=== PATIENT | male | born 1950 | race Caucasian/White ===

== ENCOUNTER 2019-03-25 09:13 | Day surgery (SDC) | payer OTHER ==
[2019-03-25 12:05] LABS: Performing Lab VERACYTE; Test Name FNA
[2019-04-11 11:50] LABS: Result SEE PATHOTH RESULTS
== END 2019-03-25 22:35 | disposition home or self-care (01) ==
LOC: US 09:13
PROVIDERS: Registered Nurse
DX: J35.1 Hypertrophy of tonsils (principal); E04.1 Nontoxic single thyroid nodule; E11.42 Type 2 diabetes mellitus with diabetic polyneuropathy; I10 Essential (primary) hypertension; N40.0 Benign prostatic hyperplasia without lower urinary tract symptoms; E78.5 Hyperlipidemia, unspecified; R97.20 Elevated prostate specific antigen [PSA]; Z88.5 Allergy status to narcotic agent
CPT/HCPCS: 10005

== ENCOUNTER 2020-07-23 19:23 | Inpatient (IN) | payer OTHER ==
[~2020-07-23] VITALS: Ht 177.8 cm; Wt 119.4 kg
[2020-07-23] MEDS ORDERED: ATOR40TA PO (19:41)
[2020-07-23] MEDS ORDERED: FINA5 PO (19:44)
[2020-07-23] MEDS ORDERED: VITAMIN D325 MC3 PO (19:44)
[2020-07-23 20:10] LABS: PCO2 Arterial 35.9 mmHg (35-45); PO2 Arterial 51.6 mmHg (80-100); pH Blood Arterial 7.47 (7.35-7.45)
[2020-07-23 20:12] LABS: BASOPHILS ABSOLUTE AUTO 0.02 K/mm3 (0.00-0.23); BASOPHILS PERCENT AUTO 0 % (0-2); EOSINOPHILS PERCENT AUTO 0 % (0-6); Hemoglobin 12.9 g/dL (13.5-17.5); IMMATURE GRAN ABSOLUTE AUTO 0.15 K/mm3 (0.00-0.10); IMMATURE GRAN PERCENT AUTO 1 % (0-1); LYMPHOCYTES ABSOLUTE AUTO 0.44 K/mm3 (0.84-5.20); LYMPHOCYTES PERCENT AUTO 3 % (21-46); MONOCYTES ABSOLUTE AUTO 0.58 K/mm3 (0.16-1.47); MONOCYTES PERCENT AUTO 4 % (4-13); Mean Corpuscular HGB 26.9 pg (26.0-34.0); Mean Corpuscular HGB Conc 33.1 g/dL (31.5-36.5); Mean Corpuscular Volume 81 fL (80-100); Mean Platelet Volume 10.8 fL (9.1-12.4); NEUTROPHILS ABSOLUTE AUTO 12.24 K/mm3 (1.96-9.15); NEUTROPHILS PERCENT AUTO 91 % (41-73); Platelet Count 363 K/mm3 (150-400); RDW Coefficient Variation 12.7 % (11.7-14.2); RDW Standard Deviation 38.2 fL (35.1-46.3); Red Blood Cell Count 4.79 M/mm3 (4.30-5.90); White Blood Cell Count 13.43 K/mm3 (4.00-11.30)
[2020-07-23] MEDS ORDERED: GABA300 PO (20:33)
[2020-07-23] MEDS ORDERED: GABA800 PO (20:34)
[2020-07-23] MEDS ORDERED: Neurontin800 MG PO (20:34)
[2020-07-23 20:35] LABS: Alanine Aminotransfer (ALT/SGP 60 U/L (12-78); Albumin, Blood 3.4 g/dL (3.4-5.0); Albumin/Globulin Ratio 0.8 (0.8-1.8); Alk Phos 124 U/L (50-136); Anion Gap 7 mmol/L (6-16); Aspartate Aminotrans (AST/SGOT 44 U/L (12-37); Bilirubin, Total 0.4 mg/dL (0.1-1.0); Blood Urea Nitrogen 26 mg/dL (8-24); Bun/Creatinine Ratio 28.5 (12.0-20.0); CO2, Blood 28 mmol/L (21-32); Calcium, Blood 9.2 mg/dL (8.5-10.1); Chloride, Blood 95 mmol/L (98-108); Creatinine, Blood 0.91 mg/dL (0.60-1.20); Globulin, Blood 4.3 g/dL (2.2-4.0); Glomerular Filtration Rate >60 (60-); Glucose, Blood 287 mg/dL (70-99); Potassium, Blood 4.3 mmol/L (3.5-5.5); Sodium, Blood 130 mmol/L (136-145); Total Protein, Blood 7.7 g/dL (6.4-8.2)
[2020-07-23] MEDS ORDERED: GUAI600T33 PO (20:35)
[2020-07-23] MEDS ORDERED: GLUCOSE4 GM PO (20:35)
[2020-07-23] MEDS ORDERED: NOVOLOG FL100 UNIT/3 (20:37)
[2020-07-23] MEDS ORDERED: Lisinopril2.5 MG PO (20:38)
[2020-07-23] MEDS ORDERED: LANTUS SOL100 UNIT/1 SC (20:38)
[2020-07-23] MEDS ORDERED: METF500C PO (20:39)
[2020-07-23] MEDS ORDERED: Norco 5-325 Ta1 EACH PO (20:40)
[2020-07-23 20:44] LABS: C-REACTIVE PROTEIN, EXT RANGE 10.5 mg/dL (0.000-0.300)
--- NOTE | 2020-07-24 03:44 | NUR ---
TX NOTE PT TX TO ICU FROM ER, ARRIVED VIA GURNEY. ALERT AND ORIENTED. ON 15LPM O2 VIA NC FOR TRANSPORT, PLACED ON 10L HIFLO NC @ 10L ONCE IN ICU BED. PT TX TO ICU BED VIA SB ASSIST. BECAME MILDLY DYSPNEIC UPON TRANSFER, RECOVERED QUICKLY UPON REST. PT WITH BL 20GA AC IV'S, ROCEPHIN GTT FINISHED UPON ARRIVAL. NO OTHER COMPLAINTS AT THIS TIME. WILL CONTINUE TO MONITOR.
[2020-07-24 04:02] LABS: BASOPHILS ABSOLUTE AUTO 0.02 K/mm3 (0.00-0.23); BASOPHILS PERCENT AUTO 0 % (0-2); EOSINOPHILS PERCENT AUTO 0 % (0-6); Hematocrit 34.8 % (37.0-53.0); Hemoglobin 11.7 g/dL (13.5-17.5); IMMATURE GRAN ABSOLUTE AUTO 0.11 K/mm3 (0.00-0.10); IMMATURE GRAN PERCENT AUTO 1 % (0-1); LYMPHOCYTES ABSOLUTE AUTO 0.35 K/mm3 (0.84-5.20); LYMPHOCYTES PERCENT AUTO 3 % (21-46); MONOCYTES ABSOLUTE AUTO 0.83 K/mm3 (0.16-1.47); MONOCYTES PERCENT AUTO 6 % (4-13); Mean Corpuscular HGB 27.3 pg (26.0-34.0); Mean Corpuscular HGB Conc 33.6 g/dL (31.5-36.5); Mean Corpuscular Volume 81 fL (80-100); Mean Platelet Volume 10.4 fL (9.1-12.4); NEUTROPHILS ABSOLUTE AUTO 11.96 K/mm3 (1.96-9.15); NEUTROPHILS PERCENT AUTO 90 % (41-73); Platelet Count 313 K/mm3 (150-400); RDW Standard Deviation 38.5 fL (35.1-46.3); Red Blood Cell Count 4.28 M/mm3 (4.30-5.90); White Blood Cell Count 13.27 K/mm3 (4.00-11.30)
[2020-07-24 04:20] LABS: Anion Gap 6 mmol/L (6-16); Blood Urea Nitrogen 25 mg/dL (8-24); Bun/Creatinine Ratio 27.9 (12.0-20.0); CO2, Blood 28 mmol/L (21-32); Calcium, Blood 8.7 mg/dL (8.5-10.1); Chloride, Blood 101 mmol/L (98-108); Glomerular Filtration Rate >60 (60-); Glucose, Blood 256 mg/dL (70-99); Sodium, Blood 135 mmol/L (136-145)
--- NOTE | 2020-07-24 06:38 | NUR ---
SHIFT SUMMARY PT ALERT AND ORIENTED. O2 SATS REMAINED >90% UNTIL THIS AM AROUND 0600. PT REQUESTING URINAL, THIS NURSE ASSISTED WITH URINAL BEDSIDE URINAL. PT DID WELL STANDING, STATED STANDING UP FEELS SO GOOD EVEN THOUGH O2 SATS WERE AROUND 86-90% WHILE STANDING. UPON RETURNING TO BED, IN THE UPRIGHT POSITION, PTS SATS CONTINUED TO REMAIN 86-90% ON 10LPM HFNC. OXYGEN TITRATED TO 15LPM WHILE COACHING PT THROUGH BREATHING TECHNIQUES. SATS CONTINUED TO REMAIN BELOW 90% c PT APPEARING DYSPNEIC. RT NOTIFIED, REQUESTED AIRVO, RT CURRENTLY IN ROOM WITH PT. WILL CONTINUE TO MONITOR.
--- NOTE | 2020-07-24 08:52 | NUR ---
AM NOTE... ASSUMED CARE OF PT AT 0700. PT IS A&Ox4 AND WAS ADMITTED WITH COVID-19. PT WAS ON AIRVO AT 45l AND 65% FIO2 AT THE START OF THIS SHIFT. WHILE THIS RN WAS IN THE ROOM FOR ASSESSMENT AND INTENTIONAL HOURLY ROUNDING PT HAD STOOD AT THE SIDE OF THE BED TO USE THE URINAL TO VOID, DURING THIS TIME THE PT'S O2 SATS DID NOT DROP BELOW 91%, ONCE THE PT WAS DONE AND HAD SAT BACK DOWN THIS RN TURNED HIS AIRVO DOWN TO 45l AND 58%FIO2 PT'S O2 SATS CONTINUE TO STAY >90% WITH THESE NEW SETTINGS. PT IS COMPLIANT WITH THE AIRVO BUT STATES IT IS UNCOMFORTABLE D/T THE HIGH FLOW OF AIR. PT'S OTHER VS ARE STABLE AT THIS TIME. PT DENIES CHEST PAIN/PRESSURE OR N/V. PT IS IN NSR IN THE 70'S-90'S, BP STABLE. PT HAS 1+ PITTING EDEMA TO HIS BLE. PULSES PALPABLE AND STRONG. L/S CLEAR AND DIM T/O. PT HAS FREQUENT DRY, HACKING, NONPRODUCTIVE COUGH. BT PRESENT AND HYPOACTIVE, ABD IS SOFT AND NONTENDER TO PALP. PT HAS NS RUNNING AT 75MLS/HR. TEMP IS 98.9. PT WAS ABLE TO STAND AT THE BEDSIDE TO VOID WITH THE URINAL INDEPENDENTLY. WILL CONTINUE TO MONITOR
--- NOTE | 2020-07-24 17:48 | NUR ---
SHIFT SUMMARY... AT APROX 1520 THE PT WAS DRINKING HIS WATER AND SAID HE TOOK "TOO BIG OF A DRINK" AND STARTED TO CHOKE, PT STATED HE FELT LIKE HE WAS DROWNING. PT WAS ON AIRVO AT 45l AND 53%FIO2 WITH O2 SATS >94%, WHEN THIS EVENT HAPPENED HE DROPPED DOWN TO THE LOW 80'S 81%-83%, RT WENT INTO THE ROOM AND INCREASED THE AIRVO TO 50l AND 70%, PT'S O2 SATS WERE STABLE ON THIS SETTING UNTIL APROX 1730 WHEN HIS O2 SATS DROPPED AGAIN AND HIS AIRVO SETTINGS HAD TO BE INCREASED TO 50l AND 80% TO KEEP IS O2 SATS>91%. DURING THIS TIME PT IS NOT IN RESPIRATORY DISTRESS, BUT HE IS HAVING INCREASING COUGHING FITS AND ATTEMPTING TO HOLD OFF COUGHING. PT WAS GIVEN A DOSE OF CODEINE COUGH SYRUP, THIS HAD GREATLY HELPED HIS COUGHING IN THE PAST. PT'S OTHER VS HAVE BEEN STABLE T/O SHIFT. NEW FAINT, FINE CRACKLES WERE HEARD IN BILATERAL BASES UPON AUSCULTATION. PT HAS BEEN INDEPENDENT IN HIS ROOM THIS SHIFT, TAKING HIMSELF TO THE TOILET AND STANDING AT THE BEDSIDE, WELL REPOSITIONING HIMSELF IN BED SEVERAL TIMES PER HOUR. PT'S WAS CALLED AND UPDATED ON HIS CONDITON AND PLAN OF CARE. CALL LIGHT IN REACH WILL CONTINUE TO MONITOR UNTIL REPORT IS GIVEN TO ONCOMING RN.
--- NOTE | 2020-07-24 22:26 | NUR ---
ASSUMED CARE NOTE: ASSUMED CARE OF PT AT 1900, RECEVIED REPORT FROM TACOS. PT IS ALERT AND ORIENTEDX3. PT IS ON AIRVO SETTINGS 50L, FiO2% SPO2 GREATER THAN 90% PT BECOMES SOB WITH ACTIVITY, ABLE TO RECOVER QUICKLY. PT IS IN SINUS RYTHYM HR IN THE 80'S. PT IS USING URINAL AT BEDSIDE IND. CALL LIGHT WITHIN REACH. WILL CONTINUE TO MONITOR PT T/O SHIFT.
--- NOTE | 2020-07-24 23:51 | NUR ---
PT DESATURATED TO 80% PT ON AIRVO 50L, FiO2 AT 90% PT AGREED TO BE INTUBATED IF NEEDED. PT STS " I WAS HAVING A COUGHING FIT, WHICH MADE IT HARDER TO BREATH" RT CALLED TO BEDSIDE
[2020-07-25 03:30] LABS: BASOPHILS ABSOLUTE AUTO 0.02 K/mm3 (0.00-0.23); BASOPHILS PERCENT AUTO 0 % (0-2); EOSINOPHILS ABSOLUTE AUTO 0.01 K/mm3 (0.00-0.68); EOSINOPHILS PERCENT AUTO 0 % (0-6); Hematocrit 37.6 % (37.0-53.0); Hemoglobin 12.4 g/dL (13.5-17.5); IMMATURE GRAN ABSOLUTE AUTO 0.14 K/mm3 (0.00-0.10); IMMATURE GRAN PERCENT AUTO 1 % (0-1); LYMPHOCYTES PERCENT AUTO 4 % (21-46); MONOCYTES ABSOLUTE AUTO 0.69 K/mm3 (0.16-1.47); MONOCYTES PERCENT AUTO 7 % (4-13); Mean Corpuscular HGB 27.3 pg (26.0-34.0); Mean Corpuscular Volume 83 fL (80-100); Mean Platelet Volume 10.4 fL (9.1-12.4); NEUTROPHILS ABSOLUTE AUTO 8.53 K/mm3 (1.96-9.15); NEUTROPHILS PERCENT AUTO 87 % (41-73); Platelet Count 339 K/mm3 (150-400); RDW Coefficient Variation 12.8 % (11.7-14.2); RDW Standard Deviation 39.2 fL (35.1-46.3); Red Blood Cell Count 4.54 M/mm3 (4.30-5.90); White Blood Cell Count 9.79 K/mm3 (4.00-11.30)
[2020-07-25 03:49] LABS: Anion Gap 5 mmol/L (6-16); Blood Urea Nitrogen 24 mg/dL (8-24); Bun/Creatinine Ratio 27.1 (12.0-20.0); CO2, Blood 33 mmol/L (21-32); Calcium, Blood 8.6 mg/dL (8.5-10.1); Chloride, Blood 100 mmol/L (98-108); Creatinine, Blood 0.89 mg/dL (0.60-1.20); Glomerular Filtration Rate >60 (60-); Glucose, Blood 202 mg/dL (70-99); Potassium, Blood 4.2 mmol/L (3.5-5.5); Sodium, Blood 138 mmol/L (136-145)
--- NOTE | 2020-07-25 06:07 | NUR ---
SHIFT SUMMARY: SEE PREVIOUS NOTES. PT CONTINUES TO BE A/OX3. PT ON BIPAP SETTINGS /, FiO2 AT 80%, SPO2 ABOVE 90% PT REQUIRES MORE O2 WHILE ACTIVITY. PT IS INSISTING ON STANDING AND USING URINAL AT BEDSIDE. PT WAS EDUCATED THAT WITH ACTIVITY HIS OXYGEN REQUIRMENT INCREASES, PT WAS ENCOURAGED TO USE URINAL IN BED. CONDOM CATH WILL BE OFFERED AGAIN. PT HAS BEEN IN SR WITH HR IN THE 70'S. WILL CONTINUE TO MONITOR PT UNTIL REPORT IS GIVEN TO ONCOMING SHIFT.
--- NOTE | 2020-07-25 08:47 | NUR ---
AM NOTE... ASSUMED CARE OF PT AT 0715, PT IS A&Ox4, PT WAS PLACED ON BIPAP 12/6 AND 75% FIO2 LAST NIGHT, PT IS CURRENTLY ON BIPAP WITH O2 SATS AT 98% RR IN THE 20'S. PT'S BP STABLE, HE IS IN SR W/1ST DEGREE AV BLOCK IN THE 60'S-90'S, PT DENIES CHEST PAIN/PRESSURE AT THIS TIME. PT HAS TRACE EDEMA TO HIS BLE, THIS IS IMPROVED FROM YESTERDAY. L/S DIM T/O WITH SCATTERED WHEEZES AND SLIGHT COARSENESS IN THE BASES. BT PRESENT AND HYPOACTIVE, ABD IS SOFT AND NONTENDER TO PALP. PT REPORTED HAVING A EPISODE OF LOOSE STOOLS YESTERDAY. PER NOC SHIFT RN REPORT PT HAD TO BE PLACED ON BIPAP AFTER A COUGHING FIT, PT TOLERATED THIS WELL. WHILE THIS RN WAS IN THE ROOM FOR MORNING ASSESSMENTS RT CAME IN AND SWITCHED THE PT OVER TO THE AIRVO AT 60l AND 90%FIO2 TO GIVE THE PT A BREAK AND PROVIDE ORAL CARE. PT HAS BEEN TOLERATING THE AIRVO AT THESE SETTINGS AND IS KEEPING HIS O2 SATS >90% AT THIS TIME. PT HAS A SLIGHLTY INCREASED WORK OF BREATHING AND SHORTNESS OF BREATH FROM YESTERDAY. PT IS EDUCATED ON STAYING IN BED AND KEEPING MOVEMENT TO A MINIMUM AT THIS TIME TO PREVENT RESPIRATORY DISTRESS, PT VERBALIZED HIS UNDERSTANDING AND HIS CONCERNS ABOUT HAVING TO GO BACK ON THE BIPAP, PT IS VERY ANXIOUS ABOUT THIS IDEA BUT IS COOPERATIVE WITH CARE AT THIS TIME. PT ATE 95% OF HIS BREAKFAST THIS AM. CALL LIGHT IN REACH WILL CONTINUE TO MONITOR.
[2020-07-25 12:23] LABS: PO2 Arterial 84.7 mmHg (80-100); pH Blood Arterial 7.41 (7.35-7.45)
--- NOTE | 2020-07-25 12:46 | NUR ---
PT UPDATE.... AT APROX 12 THIS PT'S WORK OF BREATHING INCREASED TO A RR IN THE 40'S,HE WAS ON THE AIRVO AT 60l AND 90% FIO2, RT WAS CALLED INTO THE ROOM AND SWITCHED HIM OVER TO THE BIPAP, PT'S BIPAP SETTINGS ARE CURRENTLY 12/8 AND 100% FIO2, DR. HERNANDEZ WAS CALLED AND INFORMED OF THIS WELL THE PT'S INCREASED ANXIETY ABOUT HAVING TO WEAR THE BIPAP, PO 0.5MG XANAX ONCE WAS ORDERED AT THE TIME AND WAS GIVEN WITH GOOD EFFECT. DR. HERNANDEZ ALSO CONSULTED PULMONOLOGY. ONCE THE DIRECTOR VOLUNTEER SERVICES WAS CONSULTED ORDERS WERE OBTAINED FOR A STAT CXR, ABG, D-DIMER, ESR. LOW DOSE PRECEDEX WAS ALSO ORDERED AT THE TIME, THIS WAS STARTED PER EMAR ORDERS. 1250: PT'S RR HAS DECREASED FROM THE 40'S TO THE 30'S PT IS RESTING WITH HIS EYES CLOSED IN THE BED. PT'S HR IS STABLE IN THE 70'S, BP STABLE AT 123/64. O2 SATS ARE AT 96% BIPAP SETTINGS 12/8 AND 100%. CALL LIGHT IN REACH WILL CONTINUE TO MONITOR.
[2020-07-25 14:56] LABS: Source, Urine Catheter
[2020-07-25 15:09] LABS: Appearance, Urine Clear (Clear); Bilirubin, Urine Neg (Neg); Blood, Urine 1+ (Neg); Color, Urine Yellow (P-Yellow); Glucose Qualitative, Urine 3+ (Neg); Ketones, Urine Neg (Neg); Leukocyte Esterase, Urine Neg (Neg); Nitrite, Urine Neg (Neg); Protein, Urine Neg (Neg); Specific Gravity, Urine 1.015 (1.003-1.022); Urobilinogen, Urine NORM (Normal)
[2020-07-25 15:18] LABS: Bacteria Rare /hpf; Mucus Light (0-Heavy); Red Blood Cells, Urine Not Seen /hpf (0-2); Squamous Epithelial Cells Not Seen /hpf (Few); White Blood Cells, Urine Not Seen /hpf (0-5)
--- NOTE | 2020-07-25 17:30 | NUR ---
ASSUMED PT CARE. PT SITTING UP IN BED-HIGH VANCE'S POSITION. PT RESTING QUIETLY WHEN NOT DISTURBED ON PRECEDEX @ 0.4 MCG/KG/MIN. LUNGS DIMINISHED THROUGH OUT. INCREASED WOB AND SOB NOTED WITH MINIMAL EXERTION. AT REST, RR 26 AND [id number]>90% ON AIRVO 60 L/91% PT REQUESTED "COUGH MEDICINE." REQUEST GRANTED-SEE EMAR. PT ABLE TO SWALLOW COUGH SYRUP WITH SIP OF WATER WITHOUT DIFFICULTY. CALL LIGHT WITHIN REACH. PT STATES THAT HE WILL CALL FOR ASSIST PRN.
--- NOTE | 2020-07-25 21:32 | NUR ---
ASSUMED CARE NOTE: ASSUMED CARE OF PT AT 1900, RECEVIED REPORT FROM ANDRES BARNES. PT IS DROWSY, HWOEVER IS ABLE TO AWAKEN TO VERBAL STIMULI AND ANSWER QUESTIONS. PT IS ON PRECEDEX FOR BIPAP/OXYGEN SUPPORT. PT IS ON AIRVO AT THIS TIME, SETTING 50L 92% FiO2, SPO2 ABOVE 90% PT STS " I FEEL LIKE I CAN BREATH BETTER, LESS ANXIOUS" LUNG SOUNDS ARE DIMINISHED T/O, EXP WHEEZE IN THE LOWER BASES. AWAITING FOR SPUTUM TO COLLECT SAMPLE. PT HAS BEEN IN SINUS GINGER HR BETWEEN 40-58. PT WAS ABLE TO TAKE PO MEDS W/O DIFFICULTY OR SIGNS OF ASPIRATION. FLORES IS PATENT, DRAINING TO GRAVITY. ADDY WAS CALLED WITH UPDATE, SHE WAS CONCEREND DUE TO PATINET BEING DROWSY. REASSURED THAT WE ARE MONITORING PATINET AND THAT HE IS CURRENTLY ON MEDICATION (PRECEDEX) THAT COULD MAKE HIM DROWSY. WILL CONTINUE TO MONITOR PT T/O SHIFT, BED AT LOWEST LEVEL, CALL LIGHT WITHIN REACH.
--- NOTE | 2020-07-25 22:27 | NUR ---
WITH SLIGHT ACTIVITY, PT DESATURATED TO 80%, PT WAS PLACED BACK ON BIPAP 12/8, FiO2 AT 100% SPO2 AT 90% AT THIS TIME.
[2020-07-26 04:09] LABS: Anion Gap 4 mmol/L (6-16); Blood Urea Nitrogen 23 mg/dL (8-24); Bun/Creatinine Ratio 33.9 (12.0-20.0); CO2, Blood 30 mmol/L (21-32); Calcium, Blood 8.5 mg/dL (8.5-10.1); Chloride, Blood 101 mmol/L (98-108); Creatinine, Blood 0.68 mg/dL (0.60-1.20); Glomerular Filtration Rate >60 (60-); Glucose, Blood 233 mg/dL (70-99); Potassium, Blood 4.8 mmol/L (3.5-5.5); Sodium, Blood 135 mmol/L (136-145)
--- NOTE | 2020-07-26 05:45 | NUR ---
PT SHIFTED HIPS IN BED, SPO2 DROPPED TO 70% PT WAS ON AIRVO AT THIS TIME SETTINGS 60L FiO2 92%. PT PLACED ON BIPAP /, FiO2 OF 100% , SPO2 IMPROVED TO 80% RT CALLED TO BEDSIDE. NURSE KUMAR CALLED , ORDERS FOR VERSED GIVEN. PT PRONED, PRECEDEX INCREASED TO 0.6MCG/KG/HR. SPO2 INCREASED TO 98% WITH CPAP 12, FiO2 AT 100% WILL CONTINUE TO MONITOR PT UNTIL REPORT IS GIVEN TO ONCOMING SHIFT.
[2020-07-26 06:13] LABS: PCO2 Arterial 47.3 mmHg (35-45); PO2 Arterial 48.8 mmHg (80-100); pH Blood Arterial 7.41 (7.35-7.45)
--- NOTE | 2020-07-26 09:34 | NUR ---
AM NOTE.... ASSUMED CARE OF PT AT 0715, PT WAS PRONING AT THE TIME, ON CPAP AT 12 AND 100% FIO2 WITH O2 SATS AT 94%. PT IS IN SINUS GINGER W/FIRST DEGREE AV BLOCK IN THE 50'S. BP IS ON THE SOFT SIDE WITH SBP 80'S-110'S. TRACE EDEMA IS NOTED TO HIS BLE ON ASSESSMENT. L/S DIM T/O W/ SCATTERED WHEEZES AND FINE CRACKLES NOTED ON THE RIGHT SIDE. RR IN THE 30'S. BT PRESENT AND HYPOACTIVE, ABD IS SOFT AND NONTENDER TO PALP. PT IS ON PRECEDEX AT 0.4MCG/KG/HR. PT WAS HELPED FROM PRONING TO HIGH FOWLERS TO DO AN EKG PER ORDERS THIS AM. THIS MOVEMENT MADE HIM DESAT INTO THE LOW 80'S AND IT TOOK HIM AWHILE TO IMPROVE ABOVE 88%. ONCE CARE WAS DONE WITH HIM HE REQUESTED NOT TO GO BACK TO PRONING D/T THE PAIN IT WAS CAUSING HIS SHOULDERS AND BACK. PT EDUCATED ON THE BENEFITS OF PRONING WITH GEOFF, PT VERBALIZED HIS UNDERSTANDING BUT STILL REFUSED. AT 0850 DR. VILLEGAS WAS AT THE BEDSIDE TO ASSESS THE PT, NEW ORDERS TO CHANGE HIS DUONEB TO Q4 SCHEDULED, DR. VILLEGAS SPOKE WITH THE PT ON HIS PLAN OF CARE AND WHAT THE NEXT STEPS WOULD BE IF HIS O2 SATS CONTINUED TO DROP ON THE BIPAP/CPAP. PT VERBALIZED HIS UNDERSTANDING. CALL LIGHT IN REACH WILL CONTINUE TO MONITOR.
--- NOTE | 2020-07-26 13:06 | NUR ---
PT UPDATE... AT 1130 THE PT STARTED HAVING RESPIRATORY DISTRESS, RT WAS CALLED INTO THE ROOM, PT WAS ON CPAP AT 12/100% WITH O2 SATS IN THE LOW 80'S, RT TRIED BIPAP SETTINGS, THIS HELPED BRING THE PT'S O2 SATS UP TO THE HIGH 80'S LOW 90'S FOR APROX 5 MINS BEFORE HIS O2 SATS DROPPED DOWN TO THE 70'S, PT'S RR WAS IN THE 40'S-50'S W/ACCESSORY MUSCLE USE. DR. VILLEGAS WAS NOTIFIED BY THE ANIMAL TRAINER AND PT WAS INTUBATED AT 1204 WITH AN 8.0 ET TUBE 25 AT THE TEETH. AT 1159 PT WAS GIVEN 50MCG OF PHENYLEPHRINE. 1200: 50MCG OF FENTANYL AND 20 OF ETOMIDATE. 1202: 2MG OF VERSED. 1203: 20MG OF ROCURONIUM 1204: ET TUBE PLACED WITH GOOD COLOR CHANGE. 1210: PROPOFOL STARTED AT 20MCG/KG/MIN. PRECEDEX WAS ALREADY RUNNING PRIOR TO THIS EVENT, THE PT WAS BREATHING OVER THE VENT AND COUGHING, HIS O2 SATS WERE DOWN IN THE 70'S-80'S WITH VENT SETTINGS AT AC: 20/540/14PEEP/100% DR. VILLEGAS NOTIFIED AND GAVE A VERBAL ORDER TO THIS RUN TO INCREASE THE PROPOFOL UNTIL GOOD SEDATION WAS OBTAINED, NIMBEX WAS ALSO ORDERED AT THIS TIME. WILL CONTINUE TO MONITOR.
--- NOTE | 2020-07-26 15:14 | NUR ---
PT UPDATE... PRIOR TO NIMBEX BEING STARTED THE PT'S BIS RANGE WAS 24-28, HIS TRAIN OF FOUR WAS 4/4 WITH THE DIAL AT 8. THE PROPOFOL WAS FROM 70MCG/KG/MIN TO 40MCG/KG/MIN THEN THE NIMBEX WAS STARTED AT 1335 AT 2MCG/KG/MIN. PT'S VENT SETTINGS ARE AC:20/440/PEEP14/90% W/O2 SATS >94% RR IN THE 20'S. PT'S CURRENT BIS RANGE IS 40-44. PT'S WAS CALLED AND UPDATED. WILL CONTINUE TO MONITOR.
--- NOTE | 2020-07-26 16:12 | NUR ---
pt emergently intubated. updated and discussed speaking with family to consider no cpr. will updated again of tolerace to vent nursing held phone to his ear. on quarentine will continue supportive calls and updates.
[2020-07-26 17:03] LABS: PCO2 Venous 54.9 mmHg (38-42); pH Blood Venous 7.35 (7.34-7.37)
[2020-07-26 17:04] LABS: Base Excess Venous 4.6 mmol/L; Bicarbonate Venous 27.2 mmol/L (24.0-30.0)
--- NOTE | 2020-07-26 18:43 | NUR ---
SHIFT SUMMARY... NO ACUTE NEGATIVE CHANGES SINCE PREVIOUS NOTE. PT CONTINUES TO BE ON NIMBEX AT 2MCG/KG/MIN, HIS TRAIN OF FOUR IS CURRENTLY 3/4 WITH THE DIAL AT 10. PROPOFOL IS RUNNING AT 40MCG/KG/MIN AND PRECEDEX IS RUNNING AT 0.5MCG/KG/MIN. PT'S BIS RANGE IS 40-46. VENT SETTINGS ARE AC:20/440/PEEP14/60% WITH O2 SATS >95%. PER DR. VILLEGAS DO NOT DROP THE PT BELOW A PEEP OF 10 AND FIO2 OF 60%, RT WAS MADE AWARE OF THIS REQUEST. SPUTUM SAMPLE WAS SENT TO THE LAB. FLORES IS PATENT AND DRAINING CLEAR YELLOW URINE TO GRAVITY. PT DID NOT HAVE A BM THIS SHIFT. OG TUBE IS PATENT AND OKAY TO USE FOR MEDS PER . WILL CONTINUE TO MONITOR UNTIL REPORT IS GIVEN TO ONCOMING RN.
--- NOTE | 2020-07-26 19:35 | NUR ---
ASSUMED PT CARE REPORT AND ROUNDS WITH KRISTEL BARNES AT 1900, ASSUMED PT CARE. PT INTUBATED, SEDATED AND PARALYZED. PT ON SEAT INSTALLER, SBP 136, HR 50 SINUS GINGER. SATS >92%, AC20/440/14/60, RT AT BEDSIDE AND CHANGED PEEP TO 10. PER DR VILLEGAS, PEEP TO STAY 10 OR GREATER AND FIO2 TO STAY 60% OR GREATER, RT AWARE. LUNG SOUNDS CLEAR. SECRETIONS MINIMAL AT THIS TIME. SKIN INTACT AND CLEAN. TEMP PROBE FLORES DRAINING WELL, PT AFEBRILE, TEMP 98.6. PT HAS 18G TO LEFT FA WITH PRECEDEX INFUSING @ 0.5MCG/KG/HR AND PROPOFOL INF @ 40 MCG/KG/MIN, SITE WNL, DRESSING C/D/I. PT HAS 20G TO LEFT AC, SITE WNL, DRESSING C/D/I. PT HAS POWERGLIDE TO RIGHT UPPER ARM WITH NIMBEX INF @ 2MCG/KG/MIN, SITE WNL, DRESSING C/D/I. TRAIN OF 3/4, BIS MONITOR 40'S. ABD SOFT, DISTENDED, BOWEL SOUNDS HYPOACTIVE, OG CLAMPED, CONFIRMED BY DR VILLEGAS FOR USE. SEE FULL SHIFT ASSESSMENT
[2020-07-27 04:57] LABS: BASOPHILS ABSOLUTE AUTO 0.02 K/mm3 (0.00-0.23); BASOPHILS PERCENT AUTO 0 % (0-2); EOSINOPHILS ABSOLUTE AUTO 0.04 K/mm3 (0.00-0.68); EOSINOPHILS PERCENT AUTO 1 % (0-6); Hematocrit 38.9 % (37.0-53.0); Hemoglobin 12.7 g/dL (13.5-17.5); IMMATURE GRAN ABSOLUTE AUTO 0.18 K/mm3 (0.00-0.10); IMMATURE GRAN PERCENT AUTO 2 % (0-1); LYMPHOCYTES ABSOLUTE AUTO 0.42 K/mm3 (0.84-5.20); LYMPHOCYTES PERCENT AUTO 5 % (21-46); MONOCYTES ABSOLUTE AUTO 0.55 K/mm3 (0.16-1.47); MONOCYTES PERCENT AUTO 7 % (4-13); Mean Corpuscular HGB 27.1 pg (26.0-34.0); Mean Corpuscular HGB Conc 32.6 g/dL (31.5-36.5); Mean Corpuscular Volume 83 fL (80-100); Mean Platelet Volume 10.6 fL (9.1-12.4); NEUTROPHILS ABSOLUTE AUTO 7.02 K/mm3 (1.96-9.15); NEUTROPHILS PERCENT AUTO 85 % (41-73); Platelet Count 350 K/mm3 (150-400); RDW Coefficient Variation 12.8 % (11.7-14.2); RDW Standard Deviation 38.7 fL (35.1-46.3); Red Blood Cell Count 4.69 M/mm3 (4.30-5.90); White Blood Cell Count 8.23 K/mm3 (4.00-11.30)
[2020-07-27 05:16] LABS: Anion Gap 6 mmol/L (6-16); Blood Urea Nitrogen 19 mg/dL (8-24); Bun/Creatinine Ratio 25.8 (12.0-20.0); CO2, Blood 30 mmol/L (21-32); Calcium, Blood 8.3 mg/dL (8.5-10.1); Chloride, Blood 103 mmol/L (98-108); Creatinine, Blood 0.74 mg/dL (0.60-1.20); Glomerular Filtration Rate >60 (60-); Glucose, Blood 224 mg/dL (70-99); Potassium, Blood 4.7 mmol/L (3.5-5.5); Sodium, Blood 139 mmol/L (136-145)
--- NOTE | 2020-07-27 06:36 | NUR ---
SHIFT SUMMARY PT HAD GOOD SHIFT. REMAINS INTUBATED, SEDATED AND PARALYZED. VENT SETTINGS AC 20/440/10/60, SATS >92%. LUNG SOUNDS REMAIN CLEAR. SPUTUM MINIMAL. PT HAS POWERGLIDE TO BAY WITH NIMBEX INF @ 2MCG/KG/MIN, SITE WNL, DRESSING C/D/I. PT HAS NEW 20G TO RIGHT HAND, DRESSING C/D/I, SITE WNL. PT HAS 18G TO LEFT FA WITH PROPOFOL INF @ 40MCG/KG/MIN AND PRECEDEX INF @ 0.5MCG/KG/HR, SITE WNL, DRESSING C/D/I. PT HAS CLAMPED OG TUBE, ABD SOFT/DISTENDED. BOWEL SOUNDS HYPOACTIVE. PUPILS 1MM. TEMP FLORES DRAINING YELLOW URINE. SCANT EDEMA TO BLE. EXT FLOATED ON PILLOWS. BIS 35-48. TRAIN OF 4 SCORE 3/4 TO 4/4. WILL REPORT TO ONCOMING RN.
--- NOTE | 2020-07-27 08:00 | NUR ---
Michelet report from Manuel BARNES. Patient intubated, sedated and paralyzed. He has 8.0 ET and 24 cm at teeth with vent settings of AC 20, TV 440, FiO2 60%, and PEEP 10 with sats 94%. He hasn OG in place and is clamped. He has 18 ga IV LFA infusing Propofol 40 mcg/kg/min, Precedex 0.5 mcg/kg/hr. He also has IV 20 ga RH ionfusing NS TKO. He has 20/10 PoerGlide to BAY and is infusin NS TKO and Nimbes 2 mcg/kg/min and BIZ 45, TO4/4. He has 16Fr temp pagan draining to gravity clear yellow urine. All extremities elevated with pillows.
[2020-07-27 08:35] LABS: Base Excess Venous 6.7 mmol/L; PCO2 Venous 48.3 mmHg (38-42); pH Blood Venous 7.42 (7.34-7.37)
--- NOTE | 2020-07-27 09:46 | NUR ---
No changes in vent or gtt settings. AM meds through OG and tolerated well. BIS 37-45. Repsoitioned and all extremities elevated with pillows.
--- NOTE | 2020-07-27 16:39 | NUR ---
No changes in vent or gtt settings other than Precedex is on standby. TF started Vital high Protien at 25 ml/hr and 30 ml/hr water flushes. Emptied 2200 clear yellow urine. repositioned and did orakl care.
--- NOTE | 2020-07-27 17:09 | NUR ---
Review of pt care with nursing and updated patients . She is sicker today and more fragil. still wants full care.
[2020-07-28 03:34] LABS: BASOPHILS ABSOLUTE AUTO 0.05 K/mm3 (0.00-0.23); BASOPHILS PERCENT AUTO 1 % (0-2); EOSINOPHILS ABSOLUTE AUTO 0.03 K/mm3 (0.00-0.68); EOSINOPHILS PERCENT AUTO 0 % (0-6); IMMATURE GRAN ABSOLUTE AUTO 0.34 K/mm3 (0.00-0.10); IMMATURE GRAN PERCENT AUTO 3 % (0-1); LYMPHOCYTES ABSOLUTE AUTO 0.33 K/mm3 (0.84-5.20); LYMPHOCYTES PERCENT AUTO 3 % (21-46); MONOCYTES ABSOLUTE AUTO 0.69 K/mm3 (0.16-1.47); MONOCYTES PERCENT AUTO 7 % (4-13); Mean Corpuscular HGB 26.7 pg (26.0-34.0); Mean Corpuscular HGB Conc 32.5 g/dL (31.5-36.5); Mean Corpuscular Volume 82 fL (80-100); Mean Platelet Volume 10.6 fL (9.1-12.4); NEUTROPHILS ABSOLUTE AUTO 8.42 K/mm3 (1.96-9.15); NEUTROPHILS PERCENT AUTO 86 % (41-73); Platelet Count 377 K/mm3 (150-400); RDW Coefficient Variation 12.8 % (11.7-14.2); RDW Standard Deviation 38.6 fL (35.1-46.3); Red Blood Cell Count 4.86 M/mm3 (4.30-5.90); White Blood Cell Count 9.86 K/mm3 (4.00-11.30)
[2020-07-28 03:53] LABS: Alanine Aminotransfer (ALT/SGP 71 U/L (12-78); Albumin, Blood 2.1 g/dL (3.4-5.0); Albumin/Globulin Ratio 0.5 (0.8-1.8); Alk Phos 110 U/L (50-136); Anion Gap 5 mmol/L (6-16); Aspartate Aminotrans (AST/SGOT 70 U/L (12-37); Bilirubin, Total 0.4 mg/dL (0.1-1.0); Blood Urea Nitrogen 23 mg/dL (8-24); Bun/Creatinine Ratio 31.9 (12.0-20.0); CO2, Blood 32 mmol/L (21-32); Calcium, Blood 8.3 mg/dL (8.5-10.1); Chloride, Blood 101 mmol/L (98-108); Creatinine, Blood 0.72 mg/dL (0.60-1.20); Globulin, Blood 4.3 g/dL (2.2-4.0); Glomerular Filtration Rate >60 (60-); Glucose, Blood 233 mg/dL (70-99); Magnesium, Blood 2.1 mg/dL (1.6-2.4); Phosphorus, Blood 3.4 mg/dL (2.5-4.9); Potassium, Blood 4.2 mmol/L (3.5-5.5); Sodium, Blood 138 mmol/L (136-145); Total Protein, Blood 6.4 g/dL (6.4-8.2)
--- NOTE | 2020-07-28 06:00 | NUR ---
SUMMARY: PT CONT INTUBATED SEDATED & PARALYZED W NIMBEX. PRECEDEX CONT OFF. PT BIZ HAS BEEN 30'S TO 40'S ALL SHIFT. ATTEMPTED TO DECREASE NIMBEX BUT PT NOTED W INCREASED PIP FROM INITIAL 25 AND UP TO 32, PT ALSO DESATTING TO 87% AFTER PREVIOUSLY UP TITRATED TO 70% AFTER BATH. COPIOUS ORAL SECRETIONS. ETT SECRETIONS CONT CLEAR, SL WHITE. NIMBEX INCREASED TO 2. PT WAS ALSO MED W FENTANYL W GOOD RESULT. WILL DISCUSS IN REPORT CONSIDERATION TO INCREASING FENTANYL W POSSIBILITY TO DECREASE NIMBEX. NO RESIDUALS, TF INCREASED TO GOAL RATE OF 35CC/HR. PT PASSING FLATUS, NO STOOL. SKIN WO BREAKDOWN. GOOD URINE OUTPUT.REPORT TO DAYS.
--- NOTE | 2020-07-28 11:34 | NUR ---
LATE AM NOTE. PT INITALLY ON NIMBEX GTT AND TITRATED DOWN AND OFF PER DR VILLEGAS ORDER. PT CHANGED TO PRECEDEX GTT AND LATER HR AND BP DROPPED REQUIRING LEVOPHED GTT NOTED. PT SEDATE AND TOLERTING LOWER DOSE PRECEDEX GTT AND PROPOFOL AT 40 MCG. PT NOTED TO HAVE COPIOUS SECRAETIONS OF WHITE, SL ORTIZ AND THIN SECREATIONS. PEEP INC TO 12 AND FIO2 REMAINS AT 75%. WILL FOLLOW.
--- NOTE | 2020-07-28 17:41 | NUR ---
PT REMAINS SEDATE BUT ON ONLY PROPOFOL GTT AT THIS TIME. LEVOPHED GTT HAS BEEN OFF FOR APPROX 1 1/2 HOUR WITH VS NOTED. I/O NOTED. FIO2 DOWN TO 70% AND PT TOLERATING WELL. PT CONT TO HAVE MODERATE AMOUNT OF ET SECRATIONS BUT HAS SLOWED DOWN SLIGHTLY. PICC LINE WAS PLACED THIS AFTERNOON NOTED.
--- NOTE | 2020-07-28 18:47 | NUR ---
WAS CALLED WITH PT CELL PHONE AND SHE SPOKE TO PT. BP NOTED SL LOW AND LEVOPHED GTT RESTATED AND WILL FOLLOW.
--- NOTE | 2020-07-28 19:00 | NUR ---
ASSUMED CARE NOTE: ASSUMED CARE OF PT AT 1900, RECEVIED REPORT FROM ANA BARNES. PT IS SEDATED WITH 40MCG/KG/MIN OF PROPOFOL, PT IS RESPONSIVE TO PAINFUL STIMULI. PT IS ON VENT WITH SETTINGS AC20/440/12/70% PT IS HAVING LARGE AMOUNTS OF CLEAR THIN SECRETIONS. RR BETWEEN 25-30. PT IS IN SR WITH HR IN THE 60'S, BP STABLE. LEVOPHED ON SB AT THIS TIME, MAP ABOVE 65. OGT TO TUBE FEED RUNNING AT 35ML/HR NO RESIDUAL AT THIS TIME. TEMP FLORES PATENT DRAINING TO GRAVITY, YELLOW CLEAR URINE NOTED. WILL CONTINUE TO MONITOR PT T/O SHIFT.
--- NOTE | 2020-07-28 20:25 | NUR ---
1950: ETT WAS 23 AT THE LIP, RT KARLA CORRECTED PLACEMENT TO 25 AT THE LIP.
--- NOTE | 2020-07-28 22:33 | NUR ---
TUBE FEEDING TUBING AND FORMULA CHANGED AT 2200. PT RECEVIED A BATH, AND WAS REPOSIITONED. WILL CONTINUE TO MONITOR
[2020-07-29 04:16] LABS: Hematocrit 36.1 % (37.0-53.0); Hemoglobin 11.9 g/dL (13.5-17.5); Mean Corpuscular HGB 27.4 pg (26.0-34.0); Mean Corpuscular Volume 83 fL (80-100); Mean Platelet Volume 10.5 fL (9.1-12.4); Platelet Count 324 K/mm3 (150-400); RDW Standard Deviation 39.3 fL (35.1-46.3); Red Blood Cell Count 4.35 M/mm3 (4.30-5.90); White Blood Cell Count 8.27 K/mm3 (4.00-11.30)
[2020-07-29 04:34] LABS: Anion Gap 5 mmol/L (6-16); Blood Urea Nitrogen 32 mg/dL (8-24); Bun/Creatinine Ratio 42.9 (12.0-20.0); CO2, Blood 31 mmol/L (21-32); Calcium, Blood 8.5 mg/dL (8.5-10.1); Chloride, Blood 103 mmol/L (98-108); Creatinine, Blood 0.75 mg/dL (0.60-1.20); Glomerular Filtration Rate >60 (60-); Glucose, Blood 224 mg/dL (70-99); Magnesium, Blood 2.2 mg/dL (1.6-2.4); Phosphorus, Blood 3.4 mg/dL (2.5-4.9); Potassium, Blood 4.3 mmol/L (3.5-5.5); Sodium, Blood 139 mmol/L (136-145)
[2020-07-29 05:11] LABS: BAND PERCENT MAN 2 % (0-8); BASOPHILS PERCENT MAN 0 % (0-2); EOSINOPHILS PERCENT MAN 0 % (0-6); LYMPHOCYTES ABSOLUTE MAN 0.16 K/mm3 (0.84-5.20); LYMPHOCYTES PERCENT MAN 2 % (21-46); METAMYELOCYTE ABSOLUTE MAN 0.08 K/mm3 (0.00-0.00); METAMYELOCYTE PERCENT MAN 1 % (0-0); MONOCYTES ABSOLUTE MAN 0.41 K/mm3 (0.16-1.47); MONOCYTES PERCENT MAN 5 % (4-13); MYELOCYTE ABSOLUTE MAN 0.24 K/mm3 (0.00-0.00); MYELOCYTE PERCENT MAN 3 % (0-0); NEUTROPHILS ABSOLUTE MAN 7.36 K/mm3 (1.96-9.15); SEG NEUTROPHILS PERCENT MAN 87 % (41-73); TOTAL CELLS COUNTED 100
--- NOTE | 2020-07-29 06:10 | NUR ---
SHIFT SUMMARY: PT REMAINS SEDATED WITH PROPOFOL AT 45MCG/KG/MIN, FENTANYL GIVEN PRN NEEDED FOR VENT COMPILANCE. PT IS ON VENT WITH SETTINGS AT AC20/440/12/65%, SPO2 ABOVE 90% PT HAVING LARGE AMOUNTS OF THIN WHITE/CLEAR SECRETIONS. NEEDS SUCTION OFTEN. PT HAS BEEN IN SR WITH HR IN THE 70'S. BP STABLE, LEVOPHED HAS BEEN OFF SINCE THE START OF SHIFT. TF RUNNING AT GOAL 35ML/HR, NO RESIDUALS NOTED. NO BM THIS SHIFT. FLORES PATENT, DRAINING TO GRAVITY, 1000ML OUTPUT THIS SHIFT. WILL CONTINUE TO MONITOR PT UNTIL REPORT IS GIVEN TO ONCOMING SHIFT. BED AT LOWEST LEVEL.
--- NOTE | 2020-07-29 08:30 | NUR ---
PT INTUBATED AND SEDATED WITH PROPOFOL. WHEN PROPOFOL IS OFF FOR SHORT AMT OF TIME PT WILL WAKE AND FOLLOW COMMANDS TO MOVE HANDS AND FEET AND TRACKS WITH EYE'S. SEE ASSESSMENT.
--- NOTE | 2020-07-29 18:46 | NUR ---
SUMMARY PT INTUBATED AND SEDATED WITH PROPOFOL. WAKES EASILY AND QUICKLY WHEN PROPOFOL IS OFF. PT WILL FOLLOW SIMPLE COMMANDS WHEN SEDATION IS OFF. LARGE AMT OF SECRETIONS FROM ETT TODAY, CLEAR WHITE. FIO2 WAS TITRATED DOWN TO 50%. TOLERATING TUBE FEEDS. STARTED DOCUSATE TODAY SINCE NO BM IN A FEW DAYS. ABD SOFT WITH ACTIVE BT'S. NO OTHER CHANGES TODAY.
--- NOTE | 2020-07-29 19:52 | NUR ---
ASSUMED CARE NOTE: ASSUMED CARE OF PT AT 1900, RECEVIED REPORT FROM DWIGHT BARNES. PT IS SEDATED WITH 55MCG/KG/MIN OF PROPOFOL, PT RESPONDS TO PAINFUL STIMULI. PT IS ON VENT WITH SETTINGS CHANGED TO AC20/440/12/40% PT MAINTAINING SPO2 ABOVE 90, GOAL 88% THIN WHITE FROTHY SECRETIONS NOTED VIA ETT. PLACEMENT OF ETT VERFIED WITH RT KARLA. PT IS IN SR WITH HR IN THE 60'S, BP STABLE, MAP ABOVE 65. OGT TO TF, RUNNING AT GOAL 35ML/HR, RESIDUAL 0 AT THIS TIME. FLORES PATENT DRAINING TO GRAVITY, YELLOW CLEAR. PT REPOSITIONED. BED AT LOWEST LEVEL.
[2020-07-30 03:32] LABS: Hematocrit 35.4 % (37.0-53.0); Hemoglobin 11.7 g/dL (13.5-17.5); Mean Corpuscular HGB 27.3 pg (26.0-34.0); Mean Corpuscular HGB Conc 33.1 g/dL (31.5-36.5); Mean Corpuscular Volume 83 fL (80-100); Mean Platelet Volume 10.7 fL (9.1-12.4); Platelet Count 293 K/mm3 (150-400); RDW Standard Deviation 39.1 fL (35.1-46.3); Red Blood Cell Count 4.28 M/mm3 (4.30-5.90); White Blood Cell Count 7.54 K/mm3 (4.00-11.30)
[2020-07-30 03:49] LABS: Anion Gap 3 mmol/L (6-16); Blood Urea Nitrogen 33 mg/dL (8-24); Bun/Creatinine Ratio 45.1 (12.0-20.0); CO2, Blood 32 mmol/L (21-32); Calcium, Blood 8.4 mg/dL (8.5-10.1); Chloride, Blood 102 mmol/L (98-108); Creatinine, Blood 0.73 mg/dL (0.60-1.20); Glomerular Filtration Rate >60 (60-); Glucose, Blood 262 mg/dL (70-99); Magnesium, Blood 2.2 mg/dL (1.6-2.4); Phosphorus, Blood 3.9 mg/dL (2.5-4.9); Potassium, Blood 4.4 mmol/L (3.5-5.5); Sodium, Blood 137 mmol/L (136-145)
[2020-07-30 03:52] LABS: BAND PERCENT MAN 4 % (0-8); BASOPHILS PERCENT MAN 0 % (0-2); EOSINOPHILS PERCENT MAN 0 % (0-6); LYMPHOCYTES ABSOLUTE MAN 0.07 K/mm3 (0.84-5.20); LYMPHOCYTES PERCENT MAN 1 % (21-46); MONOCYTES ABSOLUTE MAN 0.45 K/mm3 (0.16-1.47); MONOCYTES PERCENT MAN 6 % (4-13); MYELOCYTE ABSOLUTE MAN 0.15 K/mm3 (0.00-0.00); MYELOCYTE PERCENT MAN 2 % (0-0); NEUTROPHILS ABSOLUTE MAN 6.86 K/mm3 (1.96-9.15); SEG NEUTROPHILS PERCENT MAN 87 % (41-73); TOTAL CELLS COUNTED 100
--- NOTE | 2020-07-30 05:55 | NUR ---
SHIFT SUMMARY/SEDATION VACATION: PROPFOL WAS OFF FOR 5 MINTUES, PT OPENED EYES, FOLLOWED COMMANDS. PT UNABLE TO TOLERATE VENT, SEDATION RESTARTED. VENT SETTINGS CHANGED TO AC20/440/10/40%, PT HAVING LESS SECRETIONS VIA ETT SINCE START OF SHIFT. SPO2 HAS MAINTAINED ABOVE 90% PT HAS BEEN IN SR WITH HR BETWEEN 60-70, BP STABLE MAP ABOVE 65. OGT TUBING AND FEED BOTTLE CHANGED, RUNNING AT GOAL 35ML/HR, NO RESIDUALS NOTED. FLORES PATENT, DRAINING TO GRAVITY. WILL CONTINUE TO MONITOR PT UNTIL REPORT IS GIVEN TO ONCOMING SHIFT.
--- NOTE | 2020-07-30 10:28 | NUR ---
AM NOTE... ASSUMED CARE OF PT AT 0715. PT IS INTUBATED AND SEDATED AT THIS TIME, VENT SETTINGS ARE AC: 20/440/10PEEP/40% WITH O2 SATS >90%. L/S COARSE ON THE RIGHT SIDE AND DIM IN THE BASES. ET TUBE IS 8.0 AND 25 AT THE TEETH. PT IS IN SR W/FIRST DEGREE IN THE 60'S. TRACE EDEMA IS NOTED TO HIS BLE. BT PRESENT AND HYPOACTIVE, ABD HAS MILD DISTENTION BUT IS SOFT TO PALP. BOWEL CARE STARTED DUE TO PT NOT HAVING A BM SINCE 07/24. TUBE FEED RUNNING PER ORDERS AT GOAL OF 35MLS/HR, NO RESIDUAL ON ASSESSMENT. PT RESPONDS TO PAINFUL STIMULI AND ORAL CARE. FLORES IS PATENT AN DRAINING TO GRAVITY. WILL CONTINUE TO MONITOR.
--- NOTE | 2020-07-30 16:35 | NUR ---
PT UPDATE... PT'S TUBE FEED RATE WAS DECREASED FROM 35MLS/HR TO 15MLS/HR D/T HIS HIGH RATE ON THE PROPOFOL DRIP. HE IS CURRENTLY ON 60MCG/KG/MIN. DR. SQUIRES UPDATED. HIS PLAN OF CARE IS TO SEE IF THE PT CAN TOLERATE GOING FROM A PEEP OF 10 TO A PEEP OF 5 AND CONTINUE TO KEEP HIS O2 SATS>90% WITH AN FIO2 OF 50% WHILE ON THE VENT. RT NOTIFIED WELL. PT'S PEEP WAS DECREASED TO 8 AT 1630, PT'S CURRENT SETTINGS ARE AC:20/440/8/40% WITH O2 SATS CURRENTLY AT 95%. WILL CONTINUE TO MONITOR.
--- NOTE | 2020-07-30 18:16 | NUR ---
SHIFT SUMMARY... NO ACUTE NEGATIVE CHANGES NOTED THIS SHIFT. PT CONTINUES ON THE VENT AT AC:20/440/7PEEP/40% WITH O2 SATS >90%. PT'S VS HAVE BEEN STABLE T/O SHIFT. PT IS ON PROPOFOL OF 40MCG/KG/MIN AT THIS TIME WITH IV FENTANYL 50MCG PRN. THE PLAN OF CARE FOR TONIGHT PER DR. SQUIRES IS TO ATTEMPT A WEAN AND IF THE WEAN GOES WELL POSSIBLE EXTUBATION FOR THE NEAR FUTURE. PT'S HAS BEEN CALLED AND UPDATED ON THE PLAN OF CARE AND PT'S STATUS. BOWEL CARE WAS STARTED WITH SOME RESULTS TODAY, A LIQUID MED BROWN STOOL. FLORES IS PATENT AND DRAINED 1000MLS OF CLEAR YELLOW URINE. WILL CONTINUE TO MONITOR UNTIL REPORT IS GIVEN TO ONCOMING RN.
--- NOTE | 2020-07-30 22:11 | NUR ---
ASSUMED CARE AT 1900 PT LAYING IN BED INTUBATED WITH VENT SETTINGS AC 20, TV 440, PEEP 7, FIO2 40%. PT ATTEMPTS TO OPEN EYES WITH VERBAL STIMULI BUT DOES NOT FOLLOW DIRECTIONS OF MOVING EXTREMIETIES. GAG AND COUGH PRESENT. PROPOFOL INFUSING AT 40 MCG/KG/MIN VIA PICC TO JANE. HR 60'S. SBP 105-120. AFIBRILE. VHP INFUISNG VIA OG AT 15ML/HR (GOAL) WITH 30ML WATER FLUSHES Q4HR, MINIMAL RESIDUALS NOTED. FLORES PATENT AND DRAINING TO GRAVITY. SEE SHIFT ASSESSMENT FOR FULL ASSESSMENT.
[2020-07-31 03:54] LABS: Hemoglobin 12.4 g/dL (13.5-17.5); Mean Corpuscular HGB 26.8 pg (26.0-34.0); Mean Corpuscular HGB Conc 32.6 g/dL (31.5-36.5); Mean Corpuscular Volume 82 fL (80-100); Mean Platelet Volume 10.6 fL (9.1-12.4); Platelet Count 309 K/mm3 (150-400); RDW Coefficient Variation 12.8 % (11.7-14.2); RDW Standard Deviation 38.5 fL (35.1-46.3); Red Blood Cell Count 4.62 M/mm3 (4.30-5.90); White Blood Cell Count 8.54 K/mm3 (4.00-11.30)
[2020-07-31 04:11] LABS: Anion Gap 2 mmol/L (6-16); Blood Urea Nitrogen 29 mg/dL (8-24); CO2, Blood 35 mmol/L (21-32); Calcium, Blood 8.3 mg/dL (8.5-10.1); Chloride, Blood 103 mmol/L (98-108); Creatinine, Blood 0.67 mg/dL (0.60-1.20); Glomerular Filtration Rate >60 (60-); Glucose, Blood 207 mg/dL (70-99); Magnesium, Blood 2.2 mg/dL (1.6-2.4); Phosphorus, Blood 3.2 mg/dL (2.5-4.9); Potassium, Blood 4.4 mmol/L (3.5-5.5); Sodium, Blood 140 mmol/L (136-145)
[2020-07-31 04:15] LABS: PCO2 Arterial 44.2 mmHg (35-45); PO2 Arterial 50.4 mmHg (80-100); pH Blood Arterial 7.49 (7.35-7.45)
[2020-07-31 05:19] LABS: BAND PERCENT MAN 1 % (0-8); BASOPHILS PERCENT MAN 0 % (0-2); EOSINOPHILS PERCENT MAN 0 % (0-6); LYMPHOCYTES ABSOLUTE MAN 0.59 K/mm3 (0.84-5.20); LYMPHOCYTES PERCENT MAN 7 % (21-46); METAMYELOCYTE ABSOLUTE MAN 0.34 K/mm3 (0.00-0.00); METAMYELOCYTE PERCENT MAN 4 % (0-0); MONOCYTES ABSOLUTE MAN 0.59 K/mm3 (0.16-1.47); MONOCYTES PERCENT MAN 7 % (4-13); SEG NEUTROPHILS PERCENT MAN 81 % (41-73); TOTAL CELLS COUNTED 100
--- NOTE | 2020-07-31 07:04 | NUR ---
END OF SHIFT ASSESSMENT PT CONT TO BE INTUBATED WITH VENT SETTINGS AC 20, TV 440, PEEP 5, FIO2 50%. PT HAD MODERATE AMOUNT OF THICK YELLOW/WHITE SECREATIONS THROUGH ETT; PT FAILED SBT THIS AM, SEE RT NOTE. PT RESPONSIVE TO PAINFUL STIMULI, OCCATIONALLY VERBAL STIMULI, AND FOLLOWS DIRECTIONS. PROPOFOL INFUSING AT 45MCG/KG/MIN. AFIBRILE. HR 60-70. SBP 100-140. VHP INFUSING AT 15ML/HR (GOAL) WITH 30ML WATER FLUSHES Q4HR; MINIMAL RESIDUALS. FLORES AND RECTAL TUBE PATENT AND DRAINING TO GRAVITY. REPORT GIVEN TO AM RN.
--- NOTE | 2020-07-31 12:30 | NUR ---
REASSESSMENT PT REMAINS INTUBATED, NO CHANGES TO VENT SETTINGS, MAINTAINING SPO2 >92%. TUBE FEED RATE INCREASED PER DIETARY AND NEW BOTTLE STARTED. MINIMAL RESIDUALS NOTED PER OG TUBE. FLORES TO GRAVITY DRAINING CLEAR YELLOW URINE. PROPOFOL REMAINS AT 45MCG/KG/MIN. SINUS RHYTHM WITH 1ST DEGREE AVB ON THE MONITOR. VITALS REMAINS STABLE.
--- NOTE | 2020-07-31 16:00 | NUR ---
REASSESSMENT NO ACUTE CHANGES TO PREVIOUS ASSESSMENT. PT REMAINS INTUBATED, WITH NO VENT SETTING CHANGES. PROPFOL GTT IN PLACE FOR SEDATION. VITALS HAVE REMAINED STABLE.
--- NOTE | 2020-07-31 17:52 | NUR ---
SHIFT SUMMARY PT AWAKENS TO VOICE, WILL SQUEEZE HANDS ON COMMAND WITH ENCOURAGEMENT. REMAINS VENTED WITH AC 20/440/5/50. PROPOFOL GTT 45MCG/KG/MIN IN PLACE FOR SEDATION. FLORES TO GRAVITY DRAINAGE, CLEAR, YELLOW, QUANITY SUFICIANT. RECTAL TUBE TO GRAVITY WITH SMALL AMOUNT OF LIQUID OUTPUT. VITALS HAVE REMAINED STABLE. SINUS RHYTHM WITH 1ST DEGREE AVB ON MONITOR.
--- NOTE | 2020-07-31 21:20 | NUR ---
ASSUMED CARE AT 1900 PT LAYING IN BED INTUBATED WITH VENT SETTINGS AC 20, TV 440, PEEP 5, FIO2 50%; MODERATE TO LARGE AMOUNTS OF ORAL AND ETT SECREATIONS SUCTIONED. PT RESPONSIVE TO PAINFUL STIMULI AND OCCATIONALLY VERBAL STIMULI; PT ATTEMPT TO OPEN EYE AND SQUEEZE HANDS WHEN ASKED; GAG AND COUGH PRESENT; PROPOFOL INFUSING AT 45MCG/KG/MIN VIA JANE PICC LINE. CPOT 3 DURING ASSESSMENT; PRN FENTANYL GIVEN; CPOT NOW 0. AFIBRILE. HR 60'S. SBP 100-110. VHP INFUSING VIA OG AT 25ML/HR (GOAL) WITH 30ML WATER FLUSHES Q4HR. RECTAL TUBE AND FLORES PATENT AND DRAINING TO GRAVITY. SEE SHIFT ASSESSMENT FOR FULL ASSESSMENT.
[2020-08-01 04:49] LABS: Hematocrit 41.1 % (37.0-53.0); Hemoglobin 13.4 g/dL (13.5-17.5); Mean Corpuscular HGB 26.9 pg (26.0-34.0); Mean Corpuscular HGB Conc 32.6 g/dL (31.5-36.5); Mean Corpuscular Volume 83 fL (80-100); Mean Platelet Volume 10.7 fL (9.1-12.4); Platelet Count 345 K/mm3 (150-400); RDW Coefficient Variation 12.8 % (11.7-14.2); RDW Standard Deviation 38.7 fL (35.1-46.3); Red Blood Cell Count 4.98 M/mm3 (4.30-5.90); White Blood Cell Count 8.98 K/mm3 (4.00-11.30)
[2020-08-01 05:05] LABS: Anion Gap 3 mmol/L (6-16); Blood Urea Nitrogen 27 mg/dL (8-24); Bun/Creatinine Ratio 36.2 (12.0-20.0); CO2, Blood 34 mmol/L (21-32); Calcium, Blood 8.6 mg/dL (8.5-10.1); Chloride, Blood 102 mmol/L (98-108); Creatinine, Blood 0.75 mg/dL (0.60-1.20); Glomerular Filtration Rate >60 (60-); Glucose, Blood 183 mg/dL (70-99); Potassium, Blood 3.9 mmol/L (3.5-5.5); Sodium, Blood 139 mmol/L (136-145)
[2020-08-01 05:18] LABS: BAND PERCENT MAN 1 % (0-8); BASOPHILS PERCENT MAN 0 % (0-2); EOSINOPHILS ABSOLUTE MAN 0.17 K/mm3 (0.00-0.68); EOSINOPHILS PERCENT MAN 2 % (0-6); LYMPHOCYTES ABSOLUTE MAN 0.53 K/mm3 (0.84-5.20); LYMPHOCYTES PERCENT MAN 6 % (21-46); METAMYELOCYTE ABSOLUTE MAN 0.26 K/mm3 (0.00-0.00); METAMYELOCYTE PERCENT MAN 3 % (0-0); MONOCYTES ABSOLUTE MAN 0.62 K/mm3 (0.16-1.47); MONOCYTES PERCENT MAN 7 % (4-13); NEUTROPHILS ABSOLUTE MAN 7.36 K/mm3 (1.96-9.15); SEG NEUTROPHILS PERCENT MAN 81 % (41-73); TOTAL CELLS COUNTED 100
--- NOTE | 2020-08-01 06:14 | NUR ---
END OF SHIFT SUMMARY PT CONT TO BE INTUBATED WITH VENT SETTINGS AC 20, TV 440, PEEP 5, FIO2 50%; LARGE AMOUNT OF THICK ORAL AND ETT SECREATIONS SUCTIONED T/O SHIFT; PT DID NOT DO WELL WITH SBT THIS AM, SEE RT NOTE. PT RESPONSIVE TO VERBAL STIMULI AND ATTEMPTS TO FOLLOW DIRECTIONS. PROPOFOL INFUSING VIA JANE PICC AT 45MCG/KG/MIN. MAX TEMP 99.5. HR 60-80. SBP 100-130. VHP INFUSING VIA OG AT 25ML/HR (GOAL) WITH 30ML WATER FLUSHES Q4HR; MINIMAL RESIDUALS NOTED. FLORES AND RECTAL TUBE PATENT AND DRAINING TO GRAVITY. WILL REPORT TO AM RN WHEN AVAILABLE.
--- NOTE | 2020-08-01 09:32 | NUR ---
SPO2 KEPT DECREASEING TO MID 80'S. RT NOTIFIED AND MADE VENT SETTING CHANGES PER DR RIDLEY. PEEP INCREASED TO 10, FIO2 INCREASED TO 75%. PROPFOL TITRATED UP TO 50MCG/KG/MIN TO TOLERATE VENT CHANGES.
--- NOTE | 2020-08-01 10:52 | NUR ---
POST PRONING PT'S SPO2 IMMEDIATELY IMPROVED TO HIGH 90'S. FINAL VENT SETTINGS ARE AC TV 440, PEEP 10, FIO2 75%. PRIOR TO PRONING DR SQUIRES WAS AT BEDSIDE TO EVALUATE PT. PT WAS PRONED UTILIZING MULTIPLE STAFF MEMBERS TO POSITION PT CORRECTLY AND PROTECT AIRWAY.
--- NOTE | 2020-08-01 16:00 | NUR ---
REASSESSMENT PT REMAINS SEDATED ON VENTILATOR. SP02 CONTINUES TO REMAIN >95% WITH TITRATION DOWN IN FIO2 AFTER PRONING. VENTILATOR SETTINGS AC RATE 20, TV440, PEEP 10, FIO2 DOWN TO 70%. PT TOLERATING PRONING WELL, ONLY REQUIRING SLIGHT INCREASE IN PROPFOL TO 50MCG/KG/MIN. REPOSITIONING Q2 HOURS AND CHECKING PRESSURE POINTS FREQUENTLY. BP INTERMITANTLY SOFT, VITALS HAVE REMAINED STABLE. FLORES TO GRAVITY DRAINAGE, CLEAR YELLOW URINE. RECTAL TUBE TO GRAVITY DRAINAGE WITH SMALL AMOUNT LIQUID BROWN BM. TUBE FEEDS REMAIN RUNNING AT GOAL RATE OF 25ML/HR VIA OG TUBE. SINUS RHTYHM WITH 1ST DEGREE AVB ON MONITOR.
--- NOTE | 2020-08-01 18:12 | NUR ---
SHIFT SUMMARY PT IS SEDATED ON VENTILATOR. LATE MORNING SPO2 WAS UNABLE TO MAINTAIN >90%. VENTILATOR SETTINGS WERE INTIALLY INCREASED AND PT WAS PRONED. SLOWLY THROUGH THE DAY, PT WAS ABLE TO HAVE FIO2 DECREASED AND THIS EVENING PEEP DECREASED AND SPO2 IS REMAINING >96%. END SHIFT VENT SETTINGS AC: RATE 20, TV 440, PEEP 8, FIO2 50%. PLAN IS TO KEEP PT PRONE UNTIL 2230 TONIGHT. PROPFOL CONTINUES TO INFUSE AT 50MCG/KG/MIN. TUBE FEEDS AT GOAL RATE OF 25ML/HR OF VITAL HP, LOW RESIDUALS FROM OG TUBE. FLORES TO GRAVITY DRAINAGE WITH CLEAR YELLOW URINE AND RECTAL TUBE TO GRAVITY DRAINAGE WITH VERY LITTLE LIQUID OUTPUT. CBG REMAIN ELEVATED IN HIGH 200'S, INSULIN COVERAGE PER EMAR. VITALS HAVE REMAINED STABLE THIS AFTERNOON. SINUS RHYTHM WITH 1ST DECREE AVB ON MONITOR.
--- NOTE | 2020-08-01 21:38 | NUR ---
ASSUMED CARE AT 1900 PT LAYING IN BED INTUBATED WITH VENT SETTINGS AC 20, TV 440, PEEP 8, FIO2 50%, SMALL AMOUNT OF SECREATIONS NOTED. PT IS REACTIVE TO PAINFUL STIMULI AND ORAL CARE, PT CURRENTLY PRONED, PROPOFOL INFUSING AT 50MCG/KG/MIN VIA JANE PICC LINE. MAX TEMP 99.3. HR 80'S. SBP 130-150. VHP INFUSING AT 25ML/HR (GOAL) WITH 30ML WATER FLUSHES Q4HR. RECTAL TUBE AND FLORES PATENT AND DRAINING TO GRAVITY. PLAN TO UN-PRONE PT AT 2230. SEE SHIFT ASSESSMENT FOR FULL ASSESSMENT.
--- NOTE | 2020-08-01 22:06 | NUR ---
FAMILY CALLED PT ADDY CALLED AND WAS UPDATED ABOUT PT AND SHE ASKED QUESTIONS REGARDING PRONEING, THOSE QUESTIONS ANSWERED. STATED SHE WOULD CALL BACK IN THE AM.
--- NOTE | 2020-08-01 23:01 | NUR ---
PRONE TO SUPINE PT PLACED SUPINE FROM PRONE AT 2230. 2 RN'S, CHARGE NURSE, RT, AND PCT ASSISTED WITH REPOSITIONING. PT TOLERATED TURN WELL, PRN FENTANYL GIVEN BEFORE DUE TO CPOT BEING 3, NOW CPOT 0. NO SIGNS OF SKIN BREAKDOWN ON FACE. VENT SETTINGS REMAIN THE SAME. WILL CONT TO MONITOR.
[2020-08-02 04:37] LABS: BASOPHILS ABSOLUTE AUTO 0.04 K/mm3 (0.00-0.23); BASOPHILS PERCENT AUTO 0 % (0-2); EOSINOPHILS ABSOLUTE AUTO 0.15 K/mm3 (0.00-0.68); EOSINOPHILS PERCENT AUTO 2 % (0-6); Hematocrit 39.2 % (37.0-53.0); Hemoglobin 12.9 g/dL (13.5-17.5); IMMATURE GRAN ABSOLUTE AUTO 0.45 K/mm3 (0.00-0.10); IMMATURE GRAN PERCENT AUTO 4 % (0-1); LYMPHOCYTES ABSOLUTE AUTO 0.57 K/mm3 (0.84-5.20); LYMPHOCYTES PERCENT AUTO 6 % (21-46); MONOCYTES ABSOLUTE AUTO 0.72 K/mm3 (0.16-1.47); MONOCYTES PERCENT AUTO 7 % (4-13); Mean Corpuscular HGB Conc 32.9 g/dL (31.5-36.5); Mean Corpuscular Volume 82 fL (80-100); Mean Platelet Volume 10.9 fL (9.1-12.4); NEUTROPHILS ABSOLUTE AUTO 8.28 K/mm3 (1.96-9.15); NEUTROPHILS PERCENT AUTO 81 % (41-73); Platelet Count 298 K/mm3 (150-400); RDW Coefficient Variation 12.9 % (11.7-14.2); RDW Standard Deviation 38.8 fL (35.1-46.3); Red Blood Cell Count 4.78 M/mm3 (4.30-5.90); White Blood Cell Count 10.21 K/mm3 (4.00-11.30)
[2020-08-02 04:52] LABS: Anion Gap 4 mmol/L (6-16); Blood Urea Nitrogen 30 mg/dL (8-24); Bun/Creatinine Ratio 41.2 (12.0-20.0); CO2, Blood 32 mmol/L (21-32); Calcium, Blood 8.5 mg/dL (8.5-10.1); Chloride, Blood 100 mmol/L (98-108); Creatinine, Blood 0.73 mg/dL (0.60-1.20); Glomerular Filtration Rate >60 (60-); Glucose, Blood 250 mg/dL (70-99); Magnesium, Blood 2.3 mg/dL (1.6-2.4); Phosphorus, Blood 3.9 mg/dL (2.5-4.9); Potassium, Blood 4.3 mmol/L (3.5-5.5); Sodium, Blood 136 mmol/L (136-145)
--- NOTE | 2020-08-02 06:21 | NUR ---
END OF SHIFT SUMMARY PT CONT TO BE INTUBATED WITH VENT SETTINGS AC 20, TV 440, PEEP 8, FIO2 50%, SCANT AMOUNT OF SECREATIONS NOTED; SPO2 >95% SUPINE. PT REACTIVE TO PAINFUL STIMULI INCLUDING REPOSITIONING AND ORAL CARE WITH GRIMICING; GAG AND COUGH PRESENT; PROPOFOL INFUSING VIA JANE PICC AT 40MCG/KG/MIN. MAX TEMP 99.8. HR 70-80'S. SBP 90-130. VHP INFUSING AT 25ML/HR (GOAL) WITH 30ML WATER FLUSHES Q4HR. FLORES AND RECTAL TUBE PATENT AND DRAINING TO GRAVITY. WILL REPORT TO AM RN WHEN AVAILABLE.
--- NOTE | 2020-08-02 07:43 | NUR ---
ASSUMED CARE OF PT. PT IS SEDATED ON VENTILATOR, OPENS EYES TO COMMAND. VENTILATOR SETTINGS AC 20/440/8/50% AND SPO2 >95%. COURSE LUNG SOUNDS TO RIGHT CHEST, DIM IN BASES. TEMP IS MORE ELEVATED THIS AM, NOTED TO BE 100.2. FLORES IN PLACE TO GRAVITY WITH CLEAR YELLOW, SOME SEDIMENT. RECTAL TUBE TO GRAVITY. VITAL HP TUBE FEEDS AT GOAL VIA 25ML/HR VIA OG TUBE. RESTRAINTS REMAIN IN PLACE TO PREVENT EXTUBATION. OTHER VITALS REMAIN STABLE. MONITOR SHOWS PT TO BE SINUS RHYTHM WITH 1ST DEGREE AVB.
--- NOTE | 2020-08-02 12:30 | NUR ---
REASSESMENT PT REMAINS INTUBATED AND SEDATED. VENT SETTINGS AC 20/440/5/45%. SPO2 >93%. PROPOFOL CURRENTLY AT 40MCG/KG/MIN. TEMP IMPROVED TO 99. NO ACUTE CHANGES NOTED. SINUS WITH 1ST AVB ON MONITOR.
--- NOTE | 2020-08-02 16:06 | NUR ---
REASSESSMENT PT REMAINS ON VENTILATOR, DOING WELL AND MAINTAINING SPO2 >96%. RT DECREASED FIO2. VENT SETTINGS AC 20/440/5/40%. PT APPEARS TO BE TOLERATING WELL WITH DECREASE IN FIO2. NO OTHER ACUTE CHANGES NOTED. TUBE FEEDS CHANGED TO NEW SET. REMAINS VITAL HP @ 25ML/HR. VITALS HAVE REMAINED STABLE.
--- NOTE | 2020-08-02 18:30 | NUR ---
SHIFT SUMMARY PT SEDATED ON VENTILATOR, WILL AWAKEN TO NAME. SPO2 MAINTAINED TODAY WITH NO DROPS WITH VENT SETTING DECREASES. VENT SETTINGS NOW AC 20/440/5/40%FIO2. SPO2 MAINTAINING >96%. TMAX TODAY WAS 100.2F, DECREASED WITHOUT MEDICATION INTERVENTION. TUBE FEEDS VIA OG TUBE ARE VITAL HP AT 25ML/HR WITH MINIMAL RESIDUALS. CBG REMAIN ELEVATED, NOTIFIED DR SMITH THIS EVENING AND ORDERS RECEIVED FOR INCREASED INSULIIN. FLORES TO GRAVITY DRAINAGE, YELLOW WITH SEDIMENT AND QUANITY SUFFICIANT. BP REMAINS INTERMINTANTLY SOFT, MEAN HAS REMAINED >65. MONITOR SHOWS PT TO BE SINUS RHYTHM WITH 1ST AVB.
--- NOTE | 2020-08-02 19:54 | NUR ---
ASSUMED CARE RECEIVED REPORT FROM CAMERON BENJAMIN. PT IS LYING IN BED SEDATED, AND INTUBATED, 25 AT TEETH. VENT SETTINGS ARE AC 20/440/5/40%; PROPOFOL IS INFUSING AT 40 MCG/KG/MIN. VITAL HIGH PROTEIN, TF, INFUSING AT GOAL RATE OF 25 ML/HR VIA OG TUBE, WITH Q4H 30 ML WATER FLUSHES. FLORES PATENT, AND DRAINING LIGHT YELLOW URINE. RECTAL TUBE APPEARS PATENT, WITH A SMALL AMOUNT OF LIGHT BROWN, LIQUID STOOL. PT IS IN SINUS RHYTHM, RATE IN THE 70s; STABLE BP, MAP > 65; SPO2 97%, PT CURRENTLY ON LEFT SIDE/SUPINE; AFEBRILE; RR 22, WITH PEAK PRESSURES OF 19. BED LOW AND LOCKED.
--- NOTE | 2020-08-03 03:01 | NUR ---
UPDATE/SEDATION VACATION FROM 124 PROPOFOL WAS ON STANDBY, AND PT WAS ON SPONTANEOUS PRESSURE SUPPORT OF 10/5 ON THE VENT WITH 35% FIO2. PT WAS AWAKE, FOLLOWING COMMANDS: SQUEEZING MY HANDS AND LETTING GO, WIGGLING HIS TOES, AND ANSWERED A FEW YES/NO QUESTIONS BY NODDING 'YES' OR SHAKING HEAD 'NO'. HE WAS ABLE TO ANSWER 'YES' TO "ARE YOU GAURAV?", "IS YOUR ADDY?", AND "DO YOU KNOW WHERE YOU ARE?". AND HE ANSWERED 'NO' TO, "ARE YOU IN PAIN?". DURING THE WEAN PT WAS BREATHING IN THE 26-30 RANGE, AND WAS SLIGHTLY HYPERTENSIVE. BUT EVEN THOUGH HE WAS COMPLETELY OFF SEDATION, HE WAS ABLE TO REMAIN SOMEWHAT CALM AND VENTILATE FAIRLY WELL (SEE RT'S NOTE), GOOD TIDAL VOLUMES AND MINUTE VENTILATION, TOLERATING THE BREATHING TUBE WITHOUT GAGGING OR COUGHING TOO MUCH. HE DID HAVE COPIOUS ORAL SECRETIONS, THIN CLEAR, THAT WERE SUCTIONED UP FREQUENTLY WITH THE YANKAUR. CURRENTLY PT IS SEDATED, CPOT OF 0, WITH PROPOFOL AT 40 MCG/KG/MIN AND BACK ON AC 20/440/5/35%.
[2020-08-03 05:54] LABS: BASOPHILS ABSOLUTE AUTO 0.04 K/mm3 (0.00-0.23); BASOPHILS PERCENT AUTO 0 % (0-2); EOSINOPHILS ABSOLUTE AUTO 0.21 K/mm3 (0.00-0.68); EOSINOPHILS PERCENT AUTO 2 % (0-6); Hematocrit 38.7 % (37.0-53.0); Hemoglobin 12.8 g/dL (13.5-17.5); IMMATURE GRAN ABSOLUTE AUTO 0.27 K/mm3 (0.00-0.10); IMMATURE GRAN PERCENT AUTO 2 % (0-1); LYMPHOCYTES ABSOLUTE AUTO 0.52 K/mm3 (0.84-5.20); LYMPHOCYTES PERCENT AUTO 4 % (21-46); MONOCYTES ABSOLUTE AUTO 0.77 K/mm3 (0.16-1.47); MONOCYTES PERCENT AUTO 7 % (4-13); Mean Corpuscular HGB 27.1 pg (26.0-34.0); Mean Corpuscular HGB Conc 33.1 g/dL (31.5-36.5); Mean Corpuscular Volume 82 fL (80-100); NEUTROPHILS ABSOLUTE AUTO 9.89 K/mm3 (1.96-9.15); NEUTROPHILS PERCENT AUTO 85 % (41-73); Platelet Count 292 K/mm3 (150-400); RDW Coefficient Variation 12.9 % (11.7-14.2); RDW Standard Deviation 38.5 fL (35.1-46.3); Red Blood Cell Count 4.72 M/mm3 (4.30-5.90)
[2020-08-03 06:13] LABS: Anion Gap 4 mmol/L (6-16); Blood Urea Nitrogen 29 mg/dL (8-24); Bun/Creatinine Ratio 44.2 (12.0-20.0); CO2, Blood 33 mmol/L (21-32); Calcium, Blood 8.4 mg/dL (8.5-10.1); Chloride, Blood 101 mmol/L (98-108); Creatinine, Blood 0.66 mg/dL (0.60-1.20); Glomerular Filtration Rate >60 (60-); Glucose, Blood 196 mg/dL (70-99); Magnesium, Blood 2.3 mg/dL (1.6-2.4); Phosphorus, Blood 2.7 mg/dL (2.5-4.9); Sodium, Blood 138 mmol/L (136-145)
--- NOTE | 2020-08-03 07:19 | NUR ---
END OF SHIFT NO MAJOR EVENTS
--- NOTE | 2020-08-03 07:20 | NUR ---
END OF SHIFT NO MAJOR EVENTS SINCE SEDATION VACATION/WEAN. VENT REMAINS AC 20/440/5/35%, PROPOFOL AT 40 MCG/KG/MIN. TF = VHP @ 25 ML/HR, Q4H 30 ML WATER FLUSHES. MINIMAL RESIDUALS ( 5 ML ). ADEQUATE URINE OUTPUT, 900 ML, YELLOW URINE WITH SEDIMENT VIA FLORES CATHETER. VITALS STABLE, MAP > 65 T/O SHIFT, SINUS RHYTHM RATE 70-80s. TEMPERATURE SLOWLY INCREASED TO 100.2 (TMAX), GOWN HAS BEEN OFF SINCE BED BATH, AND BLANKET HAD BEEN REMOVED, WITH ONLY A TOP SHEET COVERING HIS BOTTOM HALF, TO ALLOW HIM TO COOL OFF. VERY MINIMAL OUTPUT FROM THE RECTAL TUBE, BROWN LIQUID. LESS THAN 30 ML. CURRENTLY SEDATED, BUT RESPONDS TO VERBAL STIMULI. GAVE REPORT TO CAMERON BALDERRAMA.
--- NOTE | 2020-08-03 08:24 | NUR ---
AM NOTE.... ASSUMED CARE OF PT AT 0715, PT IS INTUBATED AND SEDATED WITH VENT SETTINGS AT AC: 20/440/5/35% WITH O2 SATS>92%. ET TUBE 8.0 AND 25 AT THE TEETH. L/S CLEAR IN THE UPPER LOBES DIM IN THE MID AND LOWER LOBES. PT IS IN SR/ST W/FIRST DEGREE AND OCC PACs. PT'S BP STABLE WITH MAPS >65. PT HAS TRACE EDEMA NOTED TO HIS BILATERAL FEET AND HANDS. RESTRAINTS IN PLACE ROM PROVIDED BY THIS RN DURING ROUTINE AM CARE. BT PRESENT AND HYPOACTIVE, ABD IS SOFT AND NONTENDER TO PALP. TUBE FEED RUNNING PER ORDERS AT GOAL OF 25MLS/HR W/30MLS H2O FLUSHES Q4HR. RECTAL TUBE IN PLACE WITH VERY MINIMAL OUTPUT OF BROWN LIQUID STOOLS. FLORES PATENT AND DRAINING CLEAR YELLOW URINE TO GRAVITY. CATH CARE PROVIDED DURIING ROUTINE AM CARE BY THIS RN. PT'S CURRENT TEMP VIA FLORES TEMP PROBE IS 100.4. WILL CONTINUE TO MONITOR.
--- NOTE | 2020-08-03 09:30 | NUR ---
PT UPDATE... PT'S ADDY CALLED AND UPDATED ON PT'S CONDITION AND THE PLAN OF CARE FOR TODAY. ANSWERED ALL OF ADDY'S QUESTIONS TO HER SATISFACTION. WILL CONTINUE TO MONITOR.
--- NOTE | 2020-08-03 12:23 | NUR ---
BP TRENDING DOWN. DR BOWLING CONSULTED. 500CC NS BOLUS ORDERED AND INFUSING NOW.
--- NOTE | 2020-08-03 12:52 | NUR ---
PT UPDATE... FIRST 500MLS BOLUS DONE, PT'S BP IS 74/47 MAP <60. DR. BOWLING NOTIFIED, ANOTHER ORDER FOR A 500MLS BOLUS WAS OBTAINED AND STARTED. PT'S PROPOFOL WAS DECREASED FROM 30MCG/KG/MIN TO 25MCG/KG/MIN. WILL CONTINUE TO MONITOR.
[2020-08-03 13:24] LABS: Hematocrit 34.9 % (37.0-53.0); Hemoglobin 11.3 g/dL (13.5-17.5)
--- NOTE | 2020-08-03 14:29 | NUR ---
PT UPDATE... PT'S BP CONTINUED TO BE SOFT WITH MAPS <65 AFTER THE 1000MLS BOLUS, LEVOPHED WAS STARTED AT 1351 AND THEN PLACED ON STAND BY AT 1416. PT'S CURRENT BP IS 109/71. DR. BOWLING NOTIFIED. WILL CONTINUE TO MONITOR.
--- NOTE | 2020-08-03 17:54 | NUR ---
SHIFT SUMMARY.... NO ACUTE NEGATIVE CHANGES SINCE PREVIOUS NOTES, SINCE FLUID BOLUS AND APROX 20 MINS OF LEVOPHED THE PT'S BP HAS BEEN STABLE WITH MAPS >65. PT'S HR HAS BEEN STABLE. VENT SETTINGS ARE NOW AC:20/440/5/30%FIO2. PROPOFOL IS RUNNING AT 35MCG/MIN. PT HAS NOT HAD A BM THIS SHIFT. RECTAL TUBE WAS REMOVED. FLORES PATENT AND DRAINING 650MLS OF DARK YELLOW URINE. PT HAS LR RUNNING AT 75MLS/HR. WILL CONTINUE TO MONITOR UNTIL REPORT IS GIVEN TO ONCOMING RN.
[2020-08-03 18:53] LABS: Hematocrit 35.4 % (37.0-53.0); Hemoglobin 11.7 g/dL (13.5-17.5)
--- NOTE | 2020-08-03 20:10 | NUR ---
ASSUMED CARE RECEIVED REPORT FROM CAMERON AMBROCIO. PT IS ON RIGHT SIDE, INTUBATED AND SEDATED - CURRENTLY RESPONDING TO NOXIOUS STIMULI ONLY, WITH PROPOFOL ON 35 MCG/KG/MIN ALONG WITH LR @ 75 ML/HR. VENT SETTINGS ARE AC 20/440/5/30%, PT IS RIDING THE VENT WITH RR AT 20; PEAK PRESSURES 23. BP SOFT, BUT STABLE - MAP >65. SPO2 91-96%. HR AT 60 (TRENDING DOWNWARD FROM LAST NIGHT). PT HAS FLORES - DRAINING YELLOW URINE WITH SEDIMENT. HE IS GETTING VHP TF VIA OG TUBE - INFUSING AT GOAL RATE OF 25ML/HR, WITH Q4H 30 CC WATER FLUSHES. SWB RESTRAINTS SECURED TO BED AND PT. BED LOW AND LOCKED.
[2020-08-04 06:04] LABS: PCO2 Arterial 40.9 mmHg (35-45); PO2 Arterial 55.2 mmHg (80-100); pH Blood Arterial 7.48 (7.35-7.45)
[2020-08-04 06:09] LABS: Anion Gap 5 mmol/L (6-16); Blood Urea Nitrogen 28 mg/dL (8-24); Bun/Creatinine Ratio 43.1 (12.0-20.0); CO2, Blood 31 mmol/L (21-32); Calcium, Blood 8.2 mg/dL (8.5-10.1); Chloride, Blood 104 mmol/L (98-108); Creatinine, Blood 0.65 mg/dL (0.60-1.20); Glomerular Filtration Rate >60 (60-); Glucose, Blood 148 mg/dL (70-99); Potassium, Blood 3.9 mmol/L (3.5-5.5); Sodium, Blood 140 mmol/L (136-145)
[2020-08-04 06:10] LABS: BASOPHILS ABSOLUTE AUTO 0.02 K/mm3 (0.00-0.23); BASOPHILS PERCENT AUTO 0 % (0-2); EOSINOPHILS ABSOLUTE AUTO 0.17 K/mm3 (0.00-0.68); EOSINOPHILS PERCENT AUTO 2 % (0-6); Hematocrit 36.3 % (37.0-53.0); Hemoglobin 11.9 g/dL (13.5-17.5); IMMATURE GRAN PERCENT AUTO 2 % (0-1); LYMPHOCYTES ABSOLUTE AUTO 0.45 K/mm3 (0.84-5.20); LYMPHOCYTES PERCENT AUTO 5 % (21-46); MONOCYTES ABSOLUTE AUTO 0.78 K/mm3 (0.16-1.47); MONOCYTES PERCENT AUTO 8 % (4-13); Mean Corpuscular HGB 26.9 pg (26.0-34.0); Mean Corpuscular HGB Conc 32.8 g/dL (31.5-36.5); Mean Corpuscular Volume 82 fL (80-100); Mean Platelet Volume 11.8 fL (9.1-12.4); NEUTROPHILS ABSOLUTE AUTO 8.18 K/mm3 (1.96-9.15); NEUTROPHILS PERCENT AUTO 84 % (41-73); Platelet Count 289 K/mm3 (150-400); RDW Coefficient Variation 12.9 % (11.7-14.2); RDW Standard Deviation 38.6 fL (35.1-46.3); Red Blood Cell Count 4.42 M/mm3 (4.30-5.90)
--- NOTE | 2020-08-04 08:08 | NUR ---
END OF SHIFT NO MAJOR CHANGES T/O NIGHT, VITALS REMAIN STABLE, MAP > 65, AND HR HAS BEEN CONSISTENTLY IN THE 60-70s. CURRENT VENT SETTINGS: AC 20/440/5/30%, AND GTTPs: PROPOFOL 35 MCG/KG/MIN, AND LR AT 75 ML/HR. PT PASSED HIS SBT THIS AM, PROPOFOL WAS PLACED ON STANDBY AT 0510 AND THEN AT 0520 RT SWITCHED HIM OVER TO SPONTANEOUS PS 5/5, 30%. HE DID WELL WITH OCCASSIONAL REMINDERS TO SLOW HIS BREATHING. HE CONTINUES TO FOLLOW COMMANDS, NODS HEAD YES AND SHAKES HEAD NO APPROPRIATELY - DENIES PAIN, NODS TO THIS RN ASKING IF HE WANTS THE ETT OUT. AT 0550 RT SWITCHES PT BACK TO ASSIST CONTROL MECH VENT, AND THIS RN TURNS PROPOFOL BACK ON. PT CALM AND COOPERATIVE EVEN WHEN ON LIGHT TO NO SEDATION. WHEN SEDATED PT HAS BEEN AROUSING TO VERBAL STIMULI, WHICH IS THE MAIN CHANGE FROM THE START OF THE SHIFT, YET THIS CHANGE HAPPENED EARLY ON IN THE SHIFT. HE CONTINUES TO HAVE COPIOUS ORAL SECRETIONS THAT ARE CLEAR, AND A MODERATE AMOUNT OF THICK AND WHITE, TRACHEAL SECRETIONS. SPO2 IS 92% OR GREATER. BED LOW AND LOCKED.
--- NOTE | 2020-08-04 09:40 | NUR ---
AM NOTE... ASSUMED CARE OF PT AT 0715. PT IS INTUBATED AND SEDATED VENT SETTINGS AC: 20/440/5/30%. PER NOC SHIFT RN REPORT PT DID WELL ON HIS WEAN. PT IS ON 35MCG/MIN PROPOFOL HE IS CURRENTLY AWAKE, ALERT AND AGITATED. PT WAS ABLE TO NOD HIS HEAD APPROPRIATELY TO YES OR NO QUESTIONS AND FOLLOW COMMANDS. PT'S PROPOFOL WAS INCREASED TO 45MCG/MIN, PT IS NOW RESTING WITH EYES CLOSED AND RELAXED BUT ABLE TO RESPOND TO VERBAL STIMULI. PT'S O2 SATS ARE >90% ON THE VENT SETTINGS. PT IS IN SR W/1ST DEGREE AND OCC PACs IN THE 70'S-90'S. BP IS STABLE AT THIS TIME. PT HAS TRACE EDEMA TO HIS BLE AND HIS HANDS. L/S COARSE PRIOR TO SUCTION, AFTER SUCTION THEY SOUNDED CLEAR AND DIM T/O. PT HAS COPIOUS AMOUNTS OF ORAL SECRETIONS THIS AM. BT PRESENT BUT VERY HYPOTACTIVE, ABD IS SOFT AND NONTENDER TO PALP. FLROES IS PATENT AND DRAINING DARK YELLOW URINE TO GRAVITY. PT'S CALLED AND UPDATED ON PT'S CONDITION AND PLAN OF CARE FOR THE DAY. WILL CONTINUE TO MONITOR.
--- NOTE | 2020-08-04 14:42 | NUR ---
PT UPDATE... AT 1100 AN NG TUBE WAS PLACED PER DR. BOWLING'S ORDERS, PLACEMENT VERIFIED BY AUSCULTATION AND XRAY. AT APROX 1130 PT'S PROPOFOL WAS TURNED OFF AND THE PT WAS EXTUBATED AT 1150 BY RT DAVID. PT WAS EXTUBATED TO 6L NC WITH O2 SATS >90%. PT HAD COPIOUS AMOUNTS OF SECRETIONS AFTER EXTUBATION, PT WAS ABLE TO COUGH MANY OF THE SECRETIONS UP. L/S AFTER EXTUBATION WERE RHONCHI T/O THE UPPER LOBES, CRACKLES NOTED TO THE MID/LOWER LOBES. AT 1400 THIS RN WAS IN THE ROOM, PT'S O2 WAS DECREASED FROM 6L NC TO 4L NC. AT 1447 PT'S O2 SATS ON 4L NC WERE >90%, RR EVEN AND UNLABORED IN THE 20'S. WILL CONTINUE TO MONITOR.
--- NOTE | 2020-08-04 18:22 | NUR ---
SHIFT SUMMARY... NO ACUTE NEGATIVE CHANGES NOTED THIS SHIFT. PT CONTINUES TO DO WELL S/P EXTUBATION, HE IS ON 2L NC WITH O2 SATS>90%. PT'S OTHER VS STABLE AT THIS TIME. DOBHOFF IN PLACE AND VERIFIED VIA XRAY, THIS IS RUNNING HIS TUBE FEED AT THE ORDERED GOAL RATE OF 25MLS/HR WITH NO RESIDUALS. FLORES IS PATENT AND DRAINED 2000MLS OF DARK YELLOW URINE THIS SHIFT. PT IS ABLE TO SHIFT HIMSELF AROUND IN BED A LITTLE BIT, ARMS AND LEGS ARE STILL VERY WEAK BUT PT HAS BEEN MOVING THEM AROUND IN THE BED AND USING HIS ARMS MUCH POSSIBLE. PT'S CALLED AND UPDATED ON PT'S CONDITION AND PROGRESS THIS SHIFT. CALL LIGHT IN REACH WILL CONTINUE TO MONITOR UNTIL REPORT IS GIVEN TO ONCOMING RN.
--- NOTE | 2020-08-05 02:10 | NUR ---
UPDATE NO MAJOR CHANGES. PT CONTINUES TO STAY AWAKE AND IS FIDGITING AROUND. HE DENIES PAIN AND ANXIETY. SAYS THAT THIS IS TYPICAL BEHAVIOR FOR HIM NORMALLY. HE REMAINS ALERT AND ORIENTED X 4. COUGH IS CONGESTED AND WEAK, IT APPEARS THAT HE IS SWALLOWING THE SECRETIONS BECAUSE HE ISN'T COUGHING THEM INTO A TISSUE OR YANKAUR. WILL CONTINUE TO MONITOR.
[2020-08-05 06:40] LABS: BASOPHILS ABSOLUTE AUTO 0.02 K/mm3 (0.00-0.23); BASOPHILS PERCENT AUTO 0 % (0-2); EOSINOPHILS ABSOLUTE AUTO 0.17 K/mm3 (0.00-0.68); EOSINOPHILS PERCENT AUTO 2 % (0-6); Hematocrit 36.3 % (37.0-53.0); Hemoglobin 11.8 g/dL (13.5-17.5); IMMATURE GRAN ABSOLUTE AUTO 0.08 K/mm3 (0.00-0.10); IMMATURE GRAN PERCENT AUTO 1 % (0-1); LYMPHOCYTES ABSOLUTE AUTO 0.58 K/mm3 (0.84-5.20); LYMPHOCYTES PERCENT AUTO 7 % (21-46); MONOCYTES ABSOLUTE AUTO 0.72 K/mm3 (0.16-1.47); MONOCYTES PERCENT AUTO 9 % (4-13); Mean Corpuscular HGB 26.9 pg (26.0-34.0); Mean Corpuscular HGB Conc 32.5 g/dL (31.5-36.5); Mean Corpuscular Volume 83 fL (80-100); Mean Platelet Volume 10.9 fL (9.1-12.4); NEUTROPHILS ABSOLUTE AUTO 6.95 K/mm3 (1.96-9.15); NEUTROPHILS PERCENT AUTO 82 % (41-73); Platelet Count 312 K/mm3 (150-400); RDW Coefficient Variation 12.9 % (11.7-14.2); Red Blood Cell Count 4.38 M/mm3 (4.30-5.90); White Blood Cell Count 8.52 K/mm3 (4.00-11.30)
--- NOTE | 2020-08-05 06:51 | NUR ---
END OF SHIFT NO MAJOR CHANGES T/O END OF SHIFT. PT IS ABLE TO USE THE YANKAUR TO SUCTION SECRETIONS, BUT REMAINS VERY WEAK. STILL REQUIRES HELP WITH REPOSITIONING, AND REMINDERS TO USE FLUTTER VALVE AND INCENTIVE SPIROMETER. HE DID NOT SLEEP OVERNIGHT, AND HE WOULD FIDGIT T/O THE NIGHT, WHILE LOOKING AROUND SOME, OR STARING OFF BLANKLY. REFUSED THE TV TO BE TURNED TO A SHOW OR MOVIE. HE DENIES PAIN, SOB, ANXIETY AND NAUSEA. HE IS ON 2L NC, SPO2 90-92%. BP STABLE, MAP > 65. TEMP 99.0-99.5F. PT DID NOT USE CALL LIGHT, BUT STATES HE KNOWS HOW TO USE IT. FLORES REMAINS IN PLACE, DRAINING PLENTY OF YELLOW URINE. NO BM OVERNIGHT. TF CONTINUES TO INFUSE AT GOAL RATE. SUGARS AT 0000 AND 0600 WERE IN THE 100-150 RANGE, NO REGULAR INSULIN GIVEN OVERNIGHT. BED LOW AND LOCKED. CALL LIGHT AND YANKAUR WITHIN REACH.
[2020-08-05 07:03] LABS: Anion Gap 4 mmol/L (6-16); Blood Urea Nitrogen 26 mg/dL (8-24); CO2, Blood 32 mmol/L (21-32); Calcium, Blood 8.7 mg/dL (8.5-10.1); Chloride, Blood 110 mmol/L (98-108); Creatinine, Blood 0.67 mg/dL (0.60-1.20); Glomerular Filtration Rate >60 (60-); Glucose, Blood 116 mg/dL (70-99); Magnesium, Blood 2.2 mg/dL (1.6-2.4); Phosphorus, Blood 3.1 mg/dL (2.5-4.9); Potassium, Blood 3.8 mmol/L (3.5-5.5); Sodium, Blood 146 mmol/L (136-145)
--- NOTE | 2020-08-05 08:56 | NUR ---
BEGINNING OF SHIFT Assumed care of pt at 0700. Bedside report received from Rachel BARNES. Pt A&O x 4. Slow to respond but answers questions, follows commands, and verbalizes needs. Pleasant and cooperative with care. Pt has flat affect. States he wants to go home. States that he and his have been for several years and this separation while he has been in the hospital has been rough. Pt educated on plan of care and noted that home is the goal. Pt is on 2 LPM NC. SpO2 90% or greater. Lungs diminished t/o. Pt self-suctioning secretions with yankauer. Flutter valve and IS at bedside. SR per monitor. BP stable. Bed in lowest position. Call light in reach. Pt denies need at this time.
--- NOTE | 2020-08-05 11:30 | NUR ---
Pt stood with physical therapy, requiring maximum assist. Speech therapy in to see pt. Pt to remain NPO until next ST assessment. Pt states "that was overwhelming, standing." Reassured he is doing a good job. Dr Watson in to see patient. States that pt may be PCU status.
--- NOTE | 2020-08-05 18:42 | NUR ---
SUMMARY Pt sat up in chair for about 6 hours today. Pt worked with physical therapy and occupational therapy. Pt is motivated to activity participate in his recovery. Pt assisted to use flutter valve and incentive spirometer. Familiar and knowledgeable of these devices and required minimal instruction. Pt remains on 2 LPM NC. SpO2 90% or greater. SR per monitor. BP stable. Excellent urine output from pagan catheter. Pt back in bed. Bed in lowest position. Call light in reach. Pt denies need at this time.
--- NOTE | 2020-08-05 20:01 | NUR ---
ASSUMED CARE NOTE: ASSUMED CARE OF PT AT 1900, RECEVIED REPORT FROM ALVINA BARNES. PT IS ALERT AND ORIENTEDX3. PT IS ABLE TO FOLLOW COMMANDS AND IS ABLE TO COMMUNICATE NEEDS. PT IS SLOW TO RESPOND. PT IS ON RA WITH SPO2 AT 95%, NO RESP DISTRESS NOTED AT THIS TIME. PT IS IN NSR W/ FIRST DEGREE HB, HR IN THE 70'S, BP STABLE AT THIS TIME. TF RUNNING AT 45ML/HR VIA DOBBHOF. HYPOACTIVE BT HEARD IN ALL QUADRANTS. FLORES PATENT, DRAINING TO GRAVITY. WILL CONTINUE TO MONITOR PT T/O SHIFT.
--- NOTE | 2020-08-06 06:25 | NUR ---
SHIFT ASSESSMENT. NO SIGNIFICANT CHANGES T/O SHIFT. PT CONTINUES TO BE ALERT AND ORIENTEDX3, WHEN HE AWAKENS FROM NAPS HE IS SLIGHTLY CONFUSED AT TIMES, THEN BECOMES AWARE OF WHAT HE IS SAYING. PT CONTINUES TO BE ON 2L OF 02 VIA NC, SPO2 ABOVE 90% NO RESP DISTRESS NOTED. PT USING YANKAUER SUCTION AT BEDSIDE, PRODUCING SMALL AMOUNTS OF THIN YELLOW SECRETIONS. PT HAS BEEN IN NSR WITH HR IN THE 80'S, BP STABLE. TF RUNNING AT GOAL 60ML/HR . FLORES PATENT, DRAINING TO GRAVITY 700ML OUTPUT THIS SHIFT. PT HAS BEEN ASSISTING WITH REPOSITIONS. BED AT LOWEST LEVEL, CALL LIGHT WITHIN REACH.
--- NOTE | 2020-08-06 07:15 | NUR ---
Assumed care of pt at 0700. Bedside report received from Ilene BARNES. Pt A&O x 4. Answers questions. Follows commands. Verbalizes needs. Pleasant and cooperative with care. Pt using incentive spirometer and flutter valve independently. Pt is clumsy when using these devices but demonstrates proper use without instruction. Pt on 2 LPM NC. SpO2 90% or greater. Lungs diminished t/o. Tube feeds and flushes per orders through dobhoff. Pt tolerating well. Oseguera catheter in place, draining clear and yellow urine. Bed in lowest position. Call light in reach. Pt denies need at this time.
[2020-08-06 08:20] LABS: BASOPHILS ABSOLUTE AUTO 0.03 K/mm3 (0.00-0.23); BASOPHILS PERCENT AUTO 0 % (0-2); EOSINOPHILS ABSOLUTE AUTO 0.19 K/mm3 (0.00-0.68); EOSINOPHILS PERCENT AUTO 3 % (0-6); Hematocrit 40.1 % (37.0-53.0); Hemoglobin 13.1 g/dL (13.5-17.5); IMMATURE GRAN ABSOLUTE AUTO 0.04 K/mm3 (0.00-0.10); IMMATURE GRAN PERCENT AUTO 1 % (0-1); LYMPHOCYTES ABSOLUTE AUTO 0.59 K/mm3 (0.84-5.20); LYMPHOCYTES PERCENT AUTO 8 % (21-46); MONOCYTES ABSOLUTE AUTO 0.69 K/mm3 (0.16-1.47); MONOCYTES PERCENT AUTO 9 % (4-13); Mean Corpuscular HGB Conc 32.7 g/dL (31.5-36.5); Mean Corpuscular Volume 83 fL (80-100); Mean Platelet Volume 10.7 fL (9.1-12.4); NEUTROPHILS ABSOLUTE AUTO 6.21 K/mm3 (1.96-9.15); NEUTROPHILS PERCENT AUTO 80 % (41-73); Platelet Count 345 K/mm3 (150-400); RDW Coefficient Variation 12.9 % (11.7-14.2); RDW Standard Deviation 38.9 fL (35.1-46.3); Red Blood Cell Count 4.86 M/mm3 (4.30-5.90); White Blood Cell Count 7.75 K/mm3 (4.00-11.30)
[2020-08-06 08:40] LABS: Alanine Aminotransfer (ALT/SGP 309 U/L (12-78); Albumin, Blood 2.2 g/dL (3.4-5.0); Albumin/Globulin Ratio 0.5 (0.8-1.8); Alk Phos 149 U/L (50-136); Anion Gap 4 mmol/L (6-16); Aspartate Aminotrans (AST/SGOT 188 U/L (12-37); Bilirubin, Total 0.4 mg/dL (0.1-1.0); Blood Urea Nitrogen 29 mg/dL (8-24); Bun/Creatinine Ratio 40.6 (12.0-20.0); CO2, Blood 31 mmol/L (21-32); Calcium, Blood 8.7 mg/dL (8.5-10.1); Chloride, Blood 108 mmol/L (98-108); Creatinine, Blood 0.72 mg/dL (0.60-1.20); Globulin, Blood 4.8 g/dL (2.2-4.0); Glomerular Filtration Rate >60 (60-); Glucose, Blood 172 mg/dL (70-99); Potassium, Blood 3.9 mmol/L (3.5-5.5); Sodium, Blood 143 mmol/L (136-145)
--- NOTE | 2020-08-06 09:30 | NUR ---
Pt is up to recliner using ceiling lift. Tolerated well. Offered to turn TV on for patient, pt refused. OT in room, working with patient at this time.
--- NOTE | 2020-08-06 14:14 | NUR ---
Pt is allowed to have food and drink by mouth. Call placed to Dr Jhon regarding dobhoff feeding tube. Plan to keep tube in place until tomorrow and reassess as pt does not have much of an appetite. Pt ate only half a pudding so far.
--- NOTE | 2020-08-06 17:58 | NUR ---
SUMMARY Pt sat up in chair for about 5 hours today. Pt is more talkative and more energentic. Excellent memory, often talking about PT and OT staff by name and recalling his experiences with them. Pt is currently on room air. SpO2 90% or greater. SR per monitor. BP stable. Excellent urine output from pagan. Pt has increasing appetite but still has dobhoff in place; will reassess continued need for dobhoff tomorrow. Bed in lowest position, call light in reach, pt denies need at this time.
--- NOTE | 2020-08-06 20:28 | NUR ---
ASSUMED CARE NOTE: ASSUMED CARE OF PT AT 1900, RECEVIED REPORT FROM ALVINA BARNES. PT IS ALERT AND ORIENTEDX3, ABLE TO FOLLOW COMMANDS AND ASK QUESTIONS APPROPRIATLY. PT IS ON 2L OF 02 VIA NC, SPO2 AT 95% RESP DISTRESS NOTED. PT IS IN NSR WITH HR IN THE 80'S. PT ON TF RUNNING AT 50ML/HR. FLORES IS PATENT, DRAINING TO GRAVITY. PT REPOSITIONED, LIFT SHEET PLACED UNDER PATIENT.
--- NOTE | 2020-08-06 21:00 | NUR ---
PT IS BECOMING MORE CONFUSED, STS " MY DAUGHTER IS OUTSIDE AND MY " PT IS PULLING ON LINES AND TUBING STS" I AM TRYING TO LEAVE TO GO SEE MY AND DAUGHTER OUTSIDE" PT REMINDED HE IS IN THE HOSPITAL. PT HAS NOT BEEN ABLE TO SLEEP FOR LONG PERIODS OF TIME SINCE BEING EXTUBATED. PT C/O LOWER BACK PAIN, PT GIVEN MEDS PER EMAR, WELL REPOSITIONED.PT WAS GIVEN MELATIONIN THIS SHIFT.
--- NOTE | 2020-08-07 03:55 | NUR ---
PT IS ANXIOUS, STS THAT HIS FAMILY IS WAITING FOR HIM. CONTINUES TO BE CONFUSED. CALLED REGARDING PATIENT BEHAVIOR, MADE PHYSICAN AWARE THAT MELATONIN HAS NOT BEEN EFFECTIVE. PT IS EXPERIENCING SIGNS OF DELIRIUM. SEROQUEL ONE TIME ORDER WAS GIVEN.
--- NOTE | 2020-08-07 06:15 | NUR ---
YSHIFT SUMMARY: SEE PREVIOUS NOTES. PT IS SLEEPING AND RESTING NOW SINCE SEROQUEL WAS ORDERED. PT IS ON AND OFF OF 2L OF O2 VIA NC, SPO2 ABOVE 90%, 88% ON RA, NO RESP DISTRESS NOTED. PT IS IN NSR WITH HR IN THE 80'S, BP STABLE. PT HAS BEEN RECEVING ORAL CARE Q2HR. REPOSITIONED WITH LIFT Q2. FLORES IS PATENT, DRAINING TO GRAVITY, KEVIN COLORED URINE. WILL CONTINUE TO MONITOR PT UNTIL REPORT IS GIVEN TO ONCOMING SHIFT
--- NOTE | 2020-08-07 09:06 | NUR ---
AM NOTE.... ASSUMED CARE OF PT AT 0700, PT IS A&Ox4 WITH SOME DELIRIUM NOTED, PT KNEW HE WAS IN [place],OR AT [facility], IT WAS JULY 2020 HE ALSO KNEW HIS FULL NAME AND BUT HE ALSO THOUGHT THAT A PILLOW IN HIS BED WAS A PERSON SLEEPING IN HIS BED AND THAT THERE WAS "PEOPLE UNDER THE BED." PT'S VS STABLE AT THIS TIME, HR IN THE 80'S-90'S SR/W FIRST DEGREE. NO EDEMA NOTED ON ASSESSMENT. PT IS ON 2L NC PRN TO KEEP HIS O2 SATS >90%. L/S WHEEZES NOTED IN THE UPPER LOBES AND CLEAR/DIM T/O THE MID AND LOWER. BT PRESENT AND VERY HYPOACTIVE, ABD IS SOFT BUT TENDER TO PALP. PT'S LAST BM WAS ON 08/01, BOWEL CARE STARTED THIS AM. FLORES PATENT AND DRAINING KEVIN URINE TO GRAVITY. THIS RN GOT THE PT UP TO THE RECLINER USING THE LIFT. THIS RN HELPED THE PT EAT HIS BREAKFAST PER ST ORDERS. PT DID WELL. TUBE FEED RUNNING PER ORDERS AT 50MLS/HR WITH 100MLS H2O/Q6HRS. WILL CONTINUE TO MONITOR.
[2020-08-07 12:42] LABS: Alanine Aminotransfer (ALT/SGP 321 U/L (12-78); Albumin, Blood 2.3 g/dL (3.4-5.0); Albumin/Globulin Ratio 0.4 (0.8-1.8); Alk Phos 158 U/L (50-136); Anion Gap 5 mmol/L (6-16); Aspartate Aminotrans (AST/SGOT 148 U/L (12-37); Bilirubin, Total 0.5 mg/dL (0.1-1.0); Blood Urea Nitrogen 31 mg/dL (8-24); Bun/Creatinine Ratio 46.8 (12.0-20.0); CO2, Blood 29 mmol/L (21-32); Chloride, Blood 107 mmol/L (98-108); Creatinine, Blood 0.66 mg/dL (0.60-1.20); Globulin, Blood 5.2 g/dL (2.2-4.0); Glomerular Filtration Rate >60 (60-); Glucose, Blood 280 mg/dL (70-99); Potassium, Blood 4.7 mmol/L (3.5-5.5); Sodium, Blood 141 mmol/L (136-145); Total Protein, Blood 7.5 g/dL (6.4-8.2)
--- NOTE | 2020-08-07 18:00 | NUR ---
SHIFT SUMMARY... NO ACUTE NEGATIVE CHANGES NOTED THIS SHIFT. PT'S VS HAVE BEEN STABLE T/O SHIFT. PT HAS BEEN UP ON THE CHAIR FOR MOST OF THE SHIFT. PT HAS BEEN ON 2L AND RA AT TIMES TODAY WITH O2 SATS >90%. PT WORKED WITH PT/OT TODAY AND STOOD WITH GAITBELT AND WALKER AND 2P AST. PT'S AND DAUGHTER CAME TO THE [facility] THIS AFTERNOON AND SPOKE WITH THE PT VIA CELLPHONE. AT 1740 THE PT USED THE CALL LIGHT TO SAY HE HAD TO HAVE A BM, PT WAS ABLE TO STAND AND PIVOT TRANSFER FROM THE CHAIR TO THE BS AND HAVE A Modebo BM. PT WAS THEN ABLE TO STAND AND PIVOT TRANSFER FROM THE BSC TO THE BED WITH MIN/ 2P ASSIST. PT'S FLORES IS PATENT AND DRAINED 725MLS OF KEVIN URINE. THIS RN SPOKE WITH DR. GRECO ABOUT D/CING THE DOBHOFF D/T THE PT BEING ABLE TO EAT 50-90% OF HIS MEALS. THE PT ALSO HAS BEEN REQUESTING THE REMOVAL OF THE DOBHOFF MOST OF THE DAY. PER DR. GRECO THE DOBHOFF WAS REMOVED WNL. PT HAS NOT SHOWN ANY S/SX OF ASPIRATION DURING EATING HIS MEALS OR DRINKING FLUIDS THIS SHIFT. CALL LIGHT IN REACH WILL CONTINUE TO MONITOR UNTIL REPORT IS GIVEN TO ONCOMING RN..
--- NOTE | 2020-08-08 05:45 | NUR ---
SHIFT SUMMARY PT RESTED WELL THROUGH NIGHT. INTERMITTENT CONFUSION, BUT ABLE TO MAKE NEEDS KNOWN. SATS >90% ON 2LNC. VSS. NO C/O PAIN. Q6 CBG - INSULIN COVERAGE PER EMAR. SANDRA PRICE TO GRAVITY, JENNIE CARE PERFORMED, 500CC OUT. NO BM. PT ABLE TO TURN SELF IN THE BED. TOLERATES MEDS CRUSHED WITH APPLESAUCE. CALL LIGHT WITHIN REACH, BED IN LOWEST POSITION. WILL CONTINUE TO MONITOR.
[2020-08-08 05:53] LABS: Alanine Aminotransfer (ALT/SGP 302 U/L (12-78); Albumin, Blood 2.2 g/dL (3.4-5.0); Albumin/Globulin Ratio 0.5 (0.8-1.8); Alk Phos 148 U/L (50-136); Anion Gap 3 mmol/L (6-16); Aspartate Aminotrans (AST/SGOT 132 U/L (12-37); Bilirubin, Total 0.5 mg/dL (0.1-1.0); Blood Urea Nitrogen 28 mg/dL (8-24); Bun/Creatinine Ratio 39.2 (12.0-20.0); CO2, Blood 31 mmol/L (21-32); Calcium, Blood 8.8 mg/dL (8.5-10.1); Chloride, Blood 110 mmol/L (98-108); Creatinine, Blood 0.72 mg/dL (0.60-1.20); Globulin, Blood 4.7 g/dL (2.2-4.0); Glomerular Filtration Rate >60 (60-); Glucose, Blood 126 mg/dL (70-99); Potassium, Blood 4.2 mmol/L (3.5-5.5); Sodium, Blood 144 mmol/L (136-145); Total Protein, Blood 6.9 g/dL (6.4-8.2)
--- NOTE | 2020-08-08 11:24 | NUR ---
AM NOTE.... ASSUMED CARE OF PT AT 0715. PT IS A&Ox4, THE SPORATIC CONFUSION NOTED YESTERDAY IS NO PRESENT ON ASSESSMENT TODAY. PT'S VS STABLE. HE IS ON 2L NC PRN TO KEEP O2 SATS>90%. L/S CLEAR AND DIM T/O. RR EVEN AND UNLABORED IN THE 20'S. BT PRESETN AND HYPOACTIVE, ABD IS SOFT AND SLIGHTLY TENDER TO PALP BUT IMPROVED FROM YESTERDAY PER PT. PT HAD MED BROWN SOFT BM YESTERDAY. DOBHOFF WAS D/C'D YESTERDAY WNL. PT HAS BEEN ABLE TO EAT HIS MEALS WITHOUT ANY SIGNS/SYMPTOMS OF ASPRIATION. NO EDEMA NOTED ON ASSESSMENT. FLORES PATENT AND DRAINING KEVIN URINE TO GRAVITY. CALL LIGHT IN REACH WILL CONTINUE TO MONITOR.
--- NOTE | 2020-08-08 11:50 | NUR ---
PT UPDATE... PT UP TO RECLINER CHAIR WITH MIN 1 PERSON ASSIST WITH FWW AND GAIT BELT. PT'S STRENGTH GREATLY IMPROVED FROM YESTERDAY. WILL CONTINUE
--- NOTE | 2020-08-08 20:10 | NUR ---
SHIFT SUMMARY... NO ACUTE NEGATIVE CHANGES THIS SHIFT. PT'S VS STABLE. PT UP IN THE CHAIR FOR MEALS TODAY. FLORES PATENT AND DRAINING KEVIN URINE TO GRAVITY. NO BM THIS SHIFT. WILL CONTINUE TO MONITOR UNTIL REPORT IS GIVEN TO ONCOMING RN.
--- NOTE | 2020-08-08 21:00 | NUR ---
ASSUMED CARE AT APPROXIMATELY 1900. PT SITTING UP IN RECLINER IN NO ACUTE DISTRESS. PT ALERT AND ORIENTED, ANSWERING QUESTIONS APPROPRIATELY. VS STABLE. O2 SATS REMAIN ABOVE 90% ON 2L NC. BP STABLE. PT DENIES ANY PAIN, BUT STATES HE WOULD LIKE TO LAY IN BED. PT ABLE TO STAND AND TRANSFER TO BED WITH 1 ASSIST, GATE BELT, AND WALKER. FLORES PATENT AND DRAINING. PT ABLE TO TAKE HIS ORAL MEDICATIONS CRUSHED IN APPLESAUCE. CALL LIGHT IN REACH. WILL CONTINUE TO MONITOR CLOSELY.
--- NOTE | 2020-08-09 05:13 | NUR ---
SHIFT SUMMARY PT ABLE TO SLEEP THROUGHOUT MOST OF SHIFT. PT REMAINS ALERT AND ORIENTED THIS AM. VS STABLE. O2 SATS REMAIN ABOVE 90% ON 2L NC. PT DENIES ANY PAIN. FLORES PATENT AND DRAINING. PT ABLE TO MOVE HIMSELF IN THE BED WITH MINIMAL ASSISTANCE. WILL CONTINUE TO MONITOR AND REPORT TO ONCOMING RN. CALL LIGHT IN REACH.
[2020-08-09] MEDS ORDERED: ACET325 PO (17:10)
[2020-08-09] MEDS ORDERED: INSULANPEN SC (17:10)
[2020-08-09] MEDS ORDERED: BENZ100A PO (17:11)
[2020-08-09] MEDS ORDERED: HUMALOG100 UNIT/1 SC (17:12)
[2020-08-09] MEDS ORDERED: HUMULIN R100 UNIT/2 SC (17:13)
[2020-08-09] MEDS ORDERED: MELATONIN5 M1 PO (17:13)
[2020-08-09] MEDS ORDERED: ANTIFUNGAL POWD71 GM TOP (17:15)
[2020-08-09] MEDS ORDERED: QUET25 PO (17:15)
[2020-08-09] MEDS ORDERED: ELIQUIS5 MG PO (17:15)
--- NOTE | 2020-08-09 19:06 | NUR ---
Will follow up with for advance care planning
--- NOTE | 2020-08-09 19:40 | NUR ---
PICC LINE TO JANE DISCONTINUED. DRESSING PLACED. ASSISTED PT WITH GETTING DRESSED. ALL BELONGINGS BAGGED FOR DC TO [facility].
--- NOTE | 2020-08-09 19:55 | NUR ---
PT DC TO [facility] WITH [facility] STAFF VIA WHEELCHAIR. DRESSING TO JANE INTACT WITH NO BLEEDING. PT DENIES NEED TO VOID. PT STANDS WITH USE OF WALKER WITH MINIMAL ASSISTANCE. ALL BELONGINGS AND PACKET SENT WITH PT. PT VERBALIZED UNDERSTANDING OF DC INSTRUCTIONS.
--- NOTE | 2020-08-09 20:23 | NUR ---
SUMMARY NO ACUTE CHANGES NOTED THROUGH THE DAY. PT IS TOLERATING PO INTAKE, KEVIN URINE NOTED IN FLORES BAG. PT EVALUATED BY PT/OT. PT IS A 1 PERSON ASSIST USING FWW/GAIT BELT. MEDS GIVEN IN APPLESAUCE, NO COUGHING NOTED AFTER DRINKING/MEDS. [place] FLORES AND MIDLINE CATH REMOVED @ APPROX 1730,BOTH D/C'D WNL. DOCTOR OF PHARMACY TO D/C PICC LINE. REPORT GIVEN TO NOC RN PRIOR TO D/C.
--- NOTE | 2020-08-09 20:30 | NUR ---
REPORT TO [facility].
== END 2020-08-09 19:00 | DRG 870 ==
LOC: ER 19:23 → ICUW 23:45
PROVIDERS: Emergency Medicine; Family Medicine; Internal Medicine; Internal Medicine Critical Care Medicine; Internal Medicine Pulmonary Disease; Nurse Practitioner Acute Care; ADMIT Internal Medicine
PROC: 0BH17EZ Insertion of Endotracheal Airway into Trachea, Via Natural or Artificial Opening (ICD-10-PCS; principal; 2020-07-24)
PROC: 5A1955Z Respiratory Ventilation, Greater than 96 Consecutive Hours (ICD-10-PCS; 2020-07-24)
PROC: XW033E5 Introduction of Remdesivir Anti-infective into Peripheral Vein, Percutaneous Approach, New Technology Group 5 (ICD-10-PCS; 2020-07-24)
DX: A41.89 Other specified sepsis (principal); U07.1 COVID-19; J12.82 Pneumonia due to coronavirus disease 2019; J96.01 Acute respiratory failure with hypoxia; C81.90 Hodgkin lymphoma, unspecified, unspecified site; D84.9 Immunodeficiency, unspecified; E11.42 Type 2 diabetes mellitus with diabetic polyneuropathy; I10 Essential (primary) hypertension; E78.5 Hyperlipidemia, unspecified; N40.0 Benign prostatic hyperplasia without lower urinary tract symptoms; E11.649 Type 2 diabetes mellitus with hypoglycemia without coma
CPT/HCPCS: 31500; 31720; 36415; 36569; 36600; 51703; 71045; 80048; 80053; 81001; 82140; 82330; 82728; 82803; 82947; 83605; 83615; 83735; 83880; 84100; 84145; 84484; 85014; 85018; 85025; 85379; 85651; 86140; 87040; 87070; 87205; 92526; 92610; 93005; 93010; 94002; 94003; 94640; 94660; 94667; 94760; 96365; 96375; 97110; 97112; 97116; 97162; 97166; 97530; 97535; 99285-25; A9270; C1751; J0696; J1100; J1650; J1815; J2250; J2370; J2405; J2704; J3010; J7030; J7040; J7050; J7060; J7120